=== PATIENT | female | born 1940 | race Caucasian/White ===

== ENCOUNTER 2018-03-29 09:50 | Day surgery (SDC) | payer MEDICARE, OTHER ==
[2018-03-28 09:55] VITALS: BMI 29.9
[2018-03-29] MEDS ORDERED: Propofol 1,000 MG/100 ML VIAL IV ONE (11:58)
[2018-03-29] MEDS ORDERED: Ketamine 50 MG/ML VIAL ONE (11:58)
[2018-03-29] MEDS ORDERED: Midazolam HCl 2 mg/2 ml Vial ONE (11:59)
--- NOTE | 2018-03-29 12:55 | RAD ---
SIX VIEWS CERVICAL SPINE: Date: 03-29-18 History: Chronic pain. FINDINGS: The neutral lateral examination demonstrates no anterolisthesis or retrolisthesis. There is multileve l disc space narrowing and mild anterior osteophyte formation, most prominent at C3-4 and C5-6. Front al imaging demonstrates multilevel mid cervical spine bilateral facet and uncal vertebral osteophyte formation. Fuchs view and open mouth odontoid view appear grossly unremarkable. Flexion imaging and e xtension imaging demonstrates no significant anterolisthesis or retrolisthesis. No prevertebral soft tissue swelling. IMPRESSION: Cervical spine degenerative change as described above. POS: [facility]
--- NOTE | 2018-03-29 13:09 | RAD ---
FIVE VIEWS LUMBAR SPINE INCLUDING FLEXION AND EXTENSION VIEWS. DATE: 03/29/18. HISTORY: Chronic low back pain. COMPARISON: None available. FINDINGS: There are 5 [id number] lumbar-type vertebral bodies. There is narrowing of the intervertebral d isk spaces at all levels with scattered osteophytes in the lumbar spine. There is grade I anterolist hesis of L4 on L5. The degree of listhesis measures approximately 9 mm on flexion and extension view s. No abnormal translational motion is present. Vertebral body heights are within normal limits and no fracture is seen. Facet degenerative changes are seen within the lower lumbar spine. Vascular calcifications in the abdominal aorta and iliac arteries. IMPRESSION: 1. Multilevel degenerative changes in the lumbar spine. 2. Grade I anterolisthesis of L4 on L5. POS: [facility]
[2018-03-29] MEDS ORDERED: Fentanyl 100 MCG/2 ML VIAL ONE (14:09)
--- NOTE | 2018-03-29 14:17 | MRI ---
MRI LUMBAR SPINE NONCONTRAST: History Low back pain. Right leg radiculopathy. FINDINGS: Images including retroperitoneum show cysts arising from the cortex of the right kidney. Gallbladder is likely distended. Vertebral body heights are maintained. There is desiccation of all of the int ervertebral disks. T12-L1, L1-2: Mild osteophytosis. Central canal and neural foramina are patent. L2-3: Disk space narrowing. Posterior disk bulge and circumferential degenerative changes result in mild stenosis of the central canal and mild to moderate stenosis of each neural foramen. L3-4: Posterior disk bulge and circumferential degenerative changes result in severe stenosis of the central canal. There is moderate right and severe left foraminal stenosis. A large right posterior disk herniation is also present with inferior extension compressing the origin of the left L4 nerve root. L4-5: Disk space narrowing. Minimal degenerative spondylolisthesis. Disk bulge and circumferential degenerative changes result in severe bilateral foraminal stenoses. L5-S1: Mild osteophytosis. Thecal sac is patent. Degenerative changes with moderate right and mild left foraminal stenoses. Please note that there is sacralization of the 5th lumbar segment. IMPRESSION: 1. Large disk herniation at the L3-4 level with inferior extension compressing the right L4 nerve ro ot. 2. Prominent multilevel degenerative changes including significant central canal and foraminal steno ses as detailed above. POS: [facility]
--- NOTE | 2018-03-29 14:36 | MRI ---
MRI CERVICAL SPINE WITHOUT CONTRAST: Date: 03/29/18 HISTORY: Cervical radiculopathy. COMPARISON: None. TECHNIQUE: Cervical spine MRI is performed without intravenous Gadolinium administration. Multisequential, multi planar imaging performed. FINDINGS: Appropriate T1 marrow signal intensity of the cervical vertebra. Cervical spine vertebral body height is maintained. No fracture. No significant STIR hyperintensity to suggest vertebral body edema or li gamentous injury. Visualized brain parenchyma, cervicomedullary junction, cervical cord, and the upper thoracic cord smyth ve a normal size and signal intensity. C2-C3: No significant disc osteophyte complex. No significant central canal stenosis. Foramina are patent. C3-C4: Broad based disc osteophyte complex. No significant central canal stenosis. Degenerative changes of b ilateral uncovertebral joints result in moderate bilateral foraminal narrowing. C4-C5: No significant disc osteophyte complex. No significant central canal stenosis. Moderate bilateral for aminal narrowing. C5-C6: Broad based disc osteophyte complex effaces the ventral subarachnoid space. Deformity of the ventral thecal sac and ventral cord. Moderate central canal stenosis. Degenerative changes of bilateral uncov ertebral joints results in mild right and moderate left foraminal narrowing. C6-C7: There is a broad based disc osteophyte complex with mild stenosis of the thecal sac. Ventral subarach noid space is maintained. Mild central canal stenosis. Degenerative changes result in moderate bilate ral foraminal narrowing. C7-T1: No significant disc osteophyte complex. No significant central canal stenosis. Foramina are patent. In the left neural foramen, at T2-T3, there is a T2 hyperintense, T1 hypointense lesion that is likel y a Tarlov cyst. There is expansion and widening/remodeling of the foramen. 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 IMPRESSION: Degenerative changes of the cervical spine as detailed above. POS: [facility]
[2018-03-29] MEDS ORDERED: fentaNYL 50 mcg/hour Patch TD SCH (15:30)
== END 2018-03-29 15:53 | disposition home or self-care (01) ==
LOC: SDC/OP 09:50 → EDSTATUS 12:00 → SDC/OP 15:53
PROVIDERS: ATTEND Physician Assistant Surgical
DX: M48.02 Spinal stenosis, cervical region (principal); M47.22 Other spondylosis with radiculopathy, cervical region; M43.16 Spondylolisthesis, lumbar region; M47.26 Other spondylosis with radiculopathy, lumbar region; M51.16 Intervertebral disc disorders with radiculopathy, lumbar region; Z79.899 Other long term (current) drug therapy; Z88.5 Allergy status to narcotic agent; Z88.0 Allergy status to penicillin; Z79.84 Long term (current) use of oral hypoglycemic drugs
CPT/HCPCS: 72050; 72110; 72141; 72148; 96374; J2250; J2704; J3010

== ENCOUNTER 2018-06-07 12:47 | Outpatient (CLI) | payer MEDICARE, OTHER ==
[2018-06-07 15:23] LABS: #Basophils 0.1 thou/uL (0.0-0.2); #Eosinphils 0.2 thou/uL (0.0-0.7); #Lymphocytes 2.1 thou/uL (1.20-3.40); #Monocytes 0.5 thou/uL (0.11-0.59); #Neutrophils 6.5 thou/uL (1.40-6.50); %Eosinophils 2.5 % (0.0-10.0); %Lymphocytes 22.1 % (21.0-51.0); %Monocytes 5.6 % (0.0-10.0); %Neutrophils 68.9 % (42.0-75.0); Hemoglobin 13.4 g/dL (12.0-16.0); Mean Corpuscular HGB CONC 32.3 g/dL (32.0-36.0); Mean Corpuscular Hemoglobin 26.8 pg (27.0-31.0); Mean Platelet Volume 9.5 fL (7.4-10.4); Platelet Count 200 thou/uL (130-400); RBC Distribution Width 14.8 % (11.5-14.5); Red Blood Cell (RBC) Count 4.99 mill/uL (4.20-5.40); White Blood Cell (WBC) Count 9.4 thou/uL (4.8-10.8)
[2018-06-07 15:24] LABS: PTT 26.7 SEC (22.9-36.1); Prothrombin Time 12.8 SEC (12.0-14.7)
[2018-06-07 15:38] LABS: Anion Gap 16 mmol/L (10-20); BUN (Urea Nitrogen) 12 mg/dL (9.8-20.1); Calc. Creatinine Clearance 0 mL/min (70-130); Calcium 9.6 mg/dL (7.8-10.44); Carbon Dioxide 23 mmol/L (23-31); Chloride 106 mmol/L (98-107); Estimated GFR-MDRD 71; Glucose 184 mg/dL (83-110); Potassium 4.1 mmol/L (3.5-5.1); Sodium 141 mmol/L (136-145)
== END 2018-06-07 12:48 | disposition home or self-care (01) ==
LOC: LABBT 12:47
PROVIDERS: ATTEND Surgery
DX: Z01.818 Encounter for other preprocedural examination (principal); M54.12 Radiculopathy, cervical region; M48.02 Spinal stenosis, cervical region
CPT/HCPCS: 80048; 85025; 85610; 85730; 93005; 93010

== ENCOUNTER 2018-07-27 14:01 | Outpatient (CLI) | payer MEDICARE, OTHER ==
--- NOTE | 2018-07-27 14:43 | RAD ---
CERVICAL SPINE SERIES THREE VIEWS 07/27/18 HISTORY: Followup of surgery. The vertebral bodies are normal in height. Anterior cervical fusion has been performed at C5-6. Marke rs of a disc implant are within the confines of the disc level. There is disc narrowing at C6-7. Dege nerative facet changes are noted. IMPRESSION: Postop changes of the spine. POS: [facility]
== END 2018-07-27 14:02 | disposition home or self-care (01) ==
LOC: TBSIIMAG 14:01
PROVIDERS: ATTEND Surgery
DX: M54.2 Cervicalgia (principal); Z98.890 Other specified postprocedural states
CPT/HCPCS: 72040

== ENCOUNTER 2018-11-28 05:52 | Inpatient (IN) | payer MEDICARE, OTHER ==
[2018-11-28] MEDS ORDERED: Dexamethasone 4 mg/ml Vial ONE (06:30)
[2018-11-28] MEDS ORDERED: Bupivacaine HCl 0.5%/Epinephrine 1:200,000/PF 30 ml Vial ONE (06:30)
[2018-11-28] MEDS ORDERED: Albumin 5% 500 ML ONE (06:31)
[2018-11-28] MEDS ORDERED: Clindamycin/D5W 900 mg/50 ml Premix Bag ONE (06:44)
[2018-11-28] MEDS ORDERED: Levofloxacin 500 mg/D5W 100 ml Premix Bag ONE (06:44)
[2018-11-28] MEDS ORDERED: Heparin 10,000 UNITS/1 ML VIAL 30,000 UNITS in Sodium Chloride 0.9% 1,000 ML FS SCH (06:45)
[2018-11-28] MEDS ORDERED: Fentanyl 250 MCG/5 ML VIAL ONE (06:50)
[2018-11-28] MEDS ORDERED: Midazolam HCl 5 mg/5 ml Vial ONE (06:51)
[2018-11-28] MEDS ORDERED: Norepinephrine 8 MG/0.9% NS 250 ML ONE (06:51)
[2018-11-28] MEDS ORDERED: Vecuronium 10 MG VIAL ONE ×2 (06:51→15:10)
[2018-11-28] MEDS ORDERED: Dexmedetomidine 200 MCG/2 ML VIAL ONE (06:51)
[2018-11-28 07:00] LABS: #Basophils 0.1 thou/uL (0.0-0.2); #Eosinphils 0.3 thou/uL (0.0-0.7); #Lymphocytes 2.2 thou/uL (1.20-3.40); #Monocytes 0.8 thou/uL (0.11-0.59); #Neutrophils 4.9 thou/uL (1.40-6.50); %Basophils 1.3 % (0.0-1.0); %Eosinophils 3.4 % (0.0-10.0); %Lymphocytes 26.8 % (21.0-51.0); %Monocytes 9.7 % (0.0-10.0); %Neutrophils 58.9 % (42.0-75.0); Hemoglobin 11.7 g/dL (12.0-16.0); Mean Corpuscular Volume 80.6 fL (78.0-98.0); Mean Platelet Volume 9.7 fL (7.4-10.4); Platelet Count 173 thou/uL (130-400); RBC Distribution Width 15.4 % (11.5-14.5); White Blood Cell (WBC) Count 8.3 thou/uL (4.8-10.8)
[2018-11-28 07:06] LABS: PTT 27.1 SEC (22.9-36.1); Prothrombin Time 13.2 SEC (12.0-14.7)
[2018-11-28] MEDS ORDERED: Midazolam HCl 2 mg/2 ml Vial ONE (07:09)
[2018-11-28 07:18] LABS: Anion Gap 17 mmol/L (10-20); BUN (Urea Nitrogen) 11 mg/dL (9.8-20.1); Calc. Creatinine Clearance 92 mL/min (70-130); Calcium 9.4 mg/dL (7.8-10.44); Carbon Dioxide 23 mmol/L (23-31); Chloride 109 mmol/L (98-107); Estimated GFR-MDRD 84; Glucose 181 mg/dL (83-110); Potassium 3.9 mmol/L (3.5-5.1); Sodium 145 mmol/L (136-145)
[2018-11-28] MEDS ORDERED: Insulin Regular 300 UNITS/3 ML VIAL ONE (08:31)
[2018-11-28] MEDS ORDERED: Ondansetron PF 4 MG/2 ML Vial IVP PRN (12:09)
[2018-11-28] MEDS ORDERED: HYDROcodone/Acetaminophen 5/325 mg Tablet PO PRN (12:09)
[2018-11-28] MEDS ORDERED: Acetaminophen 325 MG TAB PO PRN (12:09)
[2018-11-28] MEDS ORDERED: Nitroglycerin 50 MG/250 ML BOT 250 ML IVPB PRN (12:09)
[2018-11-28] MEDS ORDERED: Magnesium 2 GM/NS 0.9% 100 ML 2 GM in Premix Bag 1 BAG IVPB SCH (12:09)
[2018-11-28] MEDS ORDERED: Norepinephrine 8 MG/0.9% NS 250 ML IVPB PRN (12:09)
[2018-11-28] MEDS ORDERED: Guaifenesin DM 100-10/5 ML UDCUP PO PRN (12:09)
[2018-11-28] MEDS ORDERED: Bisacodyl 10 MG SUPP PR PRN (12:09)
[2018-11-28] MEDS ORDERED: Promethazine HCl 25 MG/ML VIAL IM PRN (12:09)
[2018-11-28] MEDS ORDERED: Fentanyl 100 MCG/2 ML VIAL SLOW IVP PRN (12:09)
[2018-11-28] MEDS ORDERED: Bisacodyl 5 MG TAB PO PRN (12:09)
[2018-11-28] MEDS ORDERED: Post-Op Insulin Drip Protocol IVPB ONE (12:09)
[2018-11-28] MEDS ORDERED: Hetastarch 6% 500 ML 500 ML IVPB PRN (12:09)
[2018-11-28] MEDS ORDERED: Mag-Al 1200 mg/1200 mg/30 ML UDCUP PO PRN (12:09)
[2018-11-28 12:28] LABS: Actual Bicarbonate (HCO3a) 23.4 mEq/L (22-28); CO2 Tension 42.5 mmHg (35.0-45.0); Calcium, Ionized 1.13 mmol/L (1.12-1.30); Carboxyhemoglobin (COHb) 1.2 gm% (0.0-3.0); Hemoglobin (Hb) 9.3 g/dL (12.0-16.0); pH, Arterial 7.36 (7.35-7.45)
[2018-11-28 12:29] LABS: ALV-art Gradient 548.875 (0-20); Puncture Site ALINE
[2018-11-28] MEDS ORDERED: Nitroglycerin 50 MG/250 ML BOT 250 ML ONE (12:33)
[2018-11-28 12:37] LABS: INR-International Normal Ratio 1.3; PTT 33.3 SEC (22.9-36.1); Prothrombin Time 16.7 SEC (12.0-14.7)
[2018-11-28] MEDS: D5 1/2 NS w/20 mEq KCL 1,000 ML IV SCH (12:39)
[2018-11-28 12:43] LABS: #Eosinphils 0.1 thou/uL (0.0-0.7); #Monocytes 1.1 thou/uL (0.11-0.59); #Neutrophils 9.7 thou/uL (1.40-6.50); %Basophils 0.2 % (0.0-1.0); %Eosinophils 0.8 % (0.0-10.0); %Lymphocytes 15.2 % (21.0-51.0); %Monocytes 8.5 % (0.0-10.0); %Neutrophils 75.3 % (42.0-75.0); Hemoglobin 8.9 g/dL (12.0-16.0); Mean Corpuscular HGB CONC 31.2 g/dL (32.0-36.0); Mean Corpuscular Hemoglobin 25.5 pg (27.0-31.0); Mean Corpuscular Volume 81.7 fL (78.0-98.0); Mean Platelet Volume 9.8 fL (7.4-10.4); Platelet Count 110 thou/uL (130-400); RBC Distribution Width 15.2 % (11.5-14.5); Red Blood Cell (RBC) Count 3.48 mill/uL (4.20-5.40); White Blood Cell (WBC) Count 12.9 thou/uL (4.8-10.8)
[2018-11-28] MEDS ORDERED: Dextrose 50% Abboject 50 ML SYRINGE SLOW IVP PRN (12:44)
[2018-11-28] MEDS ORDERED: HUMULIN R 100 UNITS in Sodium Chloride 0.9% 100 ML IVPB SCH (12:44)
[2018-11-28] MEDS ORDERED: Dextrose 5% in Water 1,000 ML IV PRN (12:44)
[2018-11-28] MEDS ORDERED: Magnesium 2 GM/50 ML 2 GM in Premix Bag 1 BAG IVPB SCH (12:45)
[2018-11-28 12:54] LABS: Anion Gap 14 mmol/L (10-20); BUN (Urea Nitrogen) 8 mg/dL (9.8-20.1); Calc. Creatinine Clearance 112 mL/min (70-130); Calcium 7.8 mg/dL (7.8-10.44); Carbon Dioxide 20 mmol/L (23-31); Chloride 115 mmol/L (98-107); Estimated GFR-MDRD Greater than 90; Glucose 107 mg/dL (83-110); Potassium 3.6 mmol/L (3.5-5.1); Sodium 145 mmol/L (136-145)
--- NOTE | 2018-11-28 12:54 | RAD ---
CHEST 1 VIEW: HISTORY: Open heart surgery: COMPARISON: Radiograph 11/09/2018. FINDINGS: The patient was intubated with endotracheal tube tip just above the level of the clavicles. The cent ral venous catheter is in place with the tip projecting over the right atrium. Moderate left effusion. There is volume loss in both lungs with atelectatic changes. No significant pneumothorax. Mediastinal drains are present. IMPRESSION: Expected postoperative findings. POS: [facility]
[2018-11-28] MEDS: Ketorolac Tromethamine 30 MG/ML VIAL IVP SCH ×3 (13:01→23:51)
[2018-11-28] MEDS: Fentanyl 100 MCG/2 ML VIAL SLOW IVP PRN ×3 (13:01→22:40)
[2018-11-28] MEDS: Potassium Chloride 20 MEQ/100 ML PREMIX BAG IVPB PRN (13:35)
[2018-11-28] MEDS ORDERED: Mannitol 12.5 GM/50 ML ONE (15:10)
[2018-11-28] MEDS ORDERED: Potassium Chloride 60 MEQ/30 ML VIAL ONE (15:10)
[2018-11-28] MEDS ORDERED: Magnesium 5 GM/10 ML VIAL ONE (15:10)
[2018-11-28] MEDS ORDERED: Heparin 30,000 units/30 ml VIAL ONE (15:10)
[2018-11-28] MEDS ORDERED: Ondansetron PF 4 MG/2 ML Vial ONE (15:10)
[2018-11-28] MEDS ORDERED: Lidocaine 2% PF 100 mg/5 ml Syringe ONE (15:10)
[2018-11-28] MEDS ORDERED: Heparin 5,000 UNITS/ML VIAL ONE (15:10)
[2018-11-28] MEDS ORDERED: Cardioplegic Soln 1,000 ML BAG ONE (15:10)
[2018-11-28] MEDS ORDERED: Aminocaproic Acid 5 GM/20 ML VIAL ONE (15:10)
[2018-11-28] MEDS ORDERED: Sodium Bicarb 50 MEQ/50 ML VIAL ONE (15:10)
[2018-11-28] MEDS ORDERED: PROPOFOL 200 MG/20 ML VIAL ONE (15:10)
[2018-11-28] MEDS ORDERED: Glycopyrrolate 0.2 MG/ML 5 ML SYRINGE ONE (15:10)
[2018-11-28] MEDS ORDERED: Papaverine 60 MG/2 ML VIAL ONE (15:10)
[2018-11-28] MEDS ORDERED: Thrombin 5000 UNITS/5 ML VIAL ONE (15:10)
[2018-11-28] MEDS ORDERED: Calcium Chloride 1 GM/10 ML Abboject SYRINGE ONE (15:10)
[2018-11-28 15:27] LABS: Actual Bicarbonate (HCO3a) 20.6 mEq/L (22-28); Calcium, Ionized 1.19 mmol/L (1.12-1.30); Carboxyhemoglobin (COHb) 0.8 gm% (0.0-3.0); Hemoglobin (Hb) 10.3 g/dL (12.0-16.0); O2 Tension (PaO2) 69.7 mmHg (> 70.0); Potassium - ABG Lab 4.14 mmol/L (3.70-5.30); pH, Arterial 7.38 (7.35-7.45)
[2018-11-28 15:28] LABS: Puncture Site ALINE
[2018-11-28] MEDS: Clindamycin/D5W 900 MG in Premix Bag 1 BAG IVPB SCH ×2 (16:44→23:52)
--- NOTE | 2018-11-28 17:13 | PDOC.CTH ---
Cardiology Progress Note - Subjective Pt. back from OR. s/p CABG. Extubated. A/O x 3. complaining of back,chest and leg pain. - Objective Vital Signs Pulse Resp BP Pulse Ox 11/28/18 15:33 77 21 H 96 11/28/18 12:10 61 115/43 L Weight 183 lb - Physical Examination General/Neuro: alert & oriented x3 Neck: no JVD present Lungs: CTA Heart: RRR Abdomen: NT/ND, soft - Labs Result Diagrams: 11/28/18 12:14 11/28/18 12:14 - Assessment/Plan CAD. s/p CABG.HURT-> LAD, SVG-> OM, SVG-> PDA. HTN: controlled well at this time. DM II; controlled. Continue present meds per CV surgery. Chronic back pain: consider surgery in the next couple months. RBBB: new since surgery. May resolve. HR 62. Resume betablockers when HR stable.
--- NOTE | 2018-11-28 17:29 | OP ---
DATE OF PROCEDURE: 11/28/2018 PREOPERATIVE DIAGNOSES: Coronary artery disease/hypertension/hyperlipidemia. POSTOPERATIVE DIAGNOSES: Coronary artery disease/hypertension/hyperlipidemia. PROCEDURES PERFORMED: Coronary artery bypass grafting x3; 1. Left internal mammary artery with 1.0 mm mid left anterior descending-good conduit, small target. 2. Reverse saphenous vein 0.8 mm OM-good conduit, small target. 3. Reverse saphenous vein to 1.0 mm PDA-good conduit, small target. CO-SURGEON: Dr. Gricelda Ribera. ANESTHESIA: General endotracheal - Dr. Gus Ryder. PUMP TIME: 61 minutes. CROSS-CLAMP TIME: 34 minutes. LOW CORE TEMPERATURE: 34 degrees Celsius. STUMPER FELLER: Kenna Clarke. DRAINS: 24-Wallisian chest tube x2. DRIPS: None. TRANSFUSIONS: None. DESCRIPTION OF PROCEDURE: After consent was obtained, the patient was brought to the operating room, placed supine position on the operating room table. Appropriate lines and monitors were placed and general endotracheal anesthesia was induced. Chest and legs were prepped and draped in usual sterile fashion. Greater saphenous vein was harvested from the left thigh utilizing an endoscopic technique. This vein was inadequate to use for bypass and was discarded. The left wound was then closed in layers and Dermabond applied to skin. Right greater saphenous vein was harvested through skip incisions from the thigh. This vein was a good vein for bypass. Wound was irrigated and closed in layers. Median sternotomy was performed. Left internal mammary artery was harvested as a pedicle graft. The patient was systemically heparinized. Distal pedicle was divided and infused with papaverine. Thymic fat and pericardium were divided with electrocautery. Pericardial stay sutures were placed. Aortic and atrial cannulation were performed. After adequate heparinization, retrograde priming was performed. The patient was placed on cardiopulmonary bypass. Distal targets were marked. Aortic cross-clamp was applied and an antegrade sanguineous cardioplegic arrest was obtained. 1 L of antegrade cold cardioplegia was given. Topical cold solution was used. Reverse saphenous vein was anastomosed to the PDA in an end-to-side fashion with running 7-0 Prolene suture. Anastomosis was tested and it was hemostatic. Reverse saphenous vein was anastomosed to the OM in an end-to-side fashion with running 7-0 Prolene suture. Anastomosis was tested and was hemostatic. The mammary was brought through window and the pericardium anastomosed to LAD in an end-to-side fashion with running 7-0 Prolene suture. On release, mammary claims good occluding anastomosis and good distal flow. Pedicle was secured with interrupted 6-0 Prolene suture. Cross-clamp was removed, and partial occluding clamp placed. Saphenous veins were anastomosed to the punch sites on the aorta with running 6-0 Prolene suture. Partial occluding clamp was removed and graft was deaired. Anastomoses were inspected for hemostasis, which was good. The patient was warmed and weaned from cardiopulmonary bypass. After resumption of sinus rhythm, good hemodynamics, temperature greater than 36.5, bypass was discontinued. Transfusions were given. Protamine was administered. Decannulation performed, and a pursestring suture secured. 24-Wallisian chest tubes were placed in the mediastinum. Vancomycin paste was used on the sternal edges. After adequate hemostasis had been obtained, sternum was treated with platelet rich plasma and closed with #7 wire. The wires were twisted, buried. Intercostal block was performed with 0.5% Marcaine mixed with Decadron. The wounds were then copiously irrigated with platelet poor plasma and closed in multiple layers. Needle, sponge, and instrument counts were all reported as correct at the end of the procedure. The patient was transferred to the intensive care unit in stable but critical condition. Job ID: [id number]
[2018-11-28 18:02] LABS: Potassium 4.4 mmol/L (3.5-5.1)
[2018-11-28] MEDS: HYDROcodone/Acetaminophen 5/325 mg Tablet PO PRN (19:12)
[2018-11-28 20:09] VITALS: BMI 33.5
[2018-11-28] MEDS: fentaNYL 50 mcg/hour Patch TD SCH (20:12)
[2018-11-28] MEDS: Pregabalin 50 MG CAP PO SCH (20:22)
[2018-11-28] MEDS: rOPINIRole HCl 0.5 MG TAB PO SCH (20:22)
[2018-11-28] MEDS: Famotidine/PF 20 mg/2ml Vial SLOW IVP SCH (20:26)
[2018-11-29] MEDS: HYDROcodone/Acetaminophen 5/325 mg Tablet PO PRN (04:37)
[2018-11-29 05:09] LABS: #Lymphocytes 1.5 thou/uL (1.20-3.40); #Monocytes 1.1 thou/uL (0.11-0.59); #Neutrophils 8.3 thou/uL (1.40-6.50); %Basophils 0.4 % (0.0-1.0); %Eosinophils 0.1 % (0.0-10.0); %Lymphocytes 13.3 % (21.0-51.0); %Monocytes 10.3 % (0.0-10.0); Hemoglobin 8.6 g/dL (12.0-16.0); Mean Corpuscular HGB CONC 31.1 g/dL (32.0-36.0); Mean Corpuscular Hemoglobin 25.5 pg (27.0-31.0); Mean Corpuscular Volume 82.1 fL (78.0-98.0); Mean Platelet Volume 9.8 fL (7.4-10.4); Platelet Count 124 thou/uL (130-400); RBC Distribution Width 15.4 % (11.5-14.5); Red Blood Cell (RBC) Count 3.39 mill/uL (4.20-5.40); White Blood Cell (WBC) Count 10.9 thou/uL (4.8-10.8)
[2018-11-29 05:23] LABS: Anion Gap 10 mmol/L (10-20); BUN (Urea Nitrogen) 11 mg/dL (9.8-20.1); Calc. Creatinine Clearance 101 mL/min (70-130); Calcium 8.3 mg/dL (7.8-10.44); Carbon Dioxide 24 mmol/L (23-31); Chloride 113 mmol/L (98-107); Estimated GFR-MDRD 90; Glucose 107 mg/dL (83-110); Potassium 4.2 mmol/L (3.5-5.1); Sodium 143 mmol/L (136-145)
[2018-11-29] MEDS: Ketorolac Tromethamine 30 MG/ML VIAL IVP SCH ×3 (05:28→17:36)
[2018-11-29] MEDS: oxyCODONE 5 MG TAB PO SCH ×4 (06:49→22:50)
[2018-11-29] MEDS ORDERED: Levofloxacin 500 mg/D5W 750 MG in Premix Bag 1 BAG IVPB SCH (07:00)
--- NOTE | 2018-11-29 08:13 | RAD ---
AP CHEST: History: Post open heart surgery. Date: 11-29-18 Comparison: 11-28-18 FINDINGS: AP chest demonstrates interval extubation of the patient. A right subclavian central line is in place , distal tip overlying the right atrium. Two left sided chest tubes are in place. Left sided pleural effusion is seen. Pulmonary vascular congestion is seen. IMPRESSION: 1. Interval extubation of the patient. 2. Persistent left sided pleural effusion. POS: [facility]
[2018-11-29] MEDS ORDERED: Magnesium 2 GM/50 ML 2 GM in Premix Bag 1 BAG IVPB SCH ×2 (09:00→10:15)
[2018-11-29] MEDS ORDERED: Magnesium 2 GM/NS 0.9% 100 ML 2 GM in Premix Bag 1 BAG IVPB SCH (09:00)
[2018-11-29] MEDS: Clindamycin/D5W 900 MG in Premix Bag 1 BAG IVPB SCH ×2 (09:25→16:07)
[2018-11-29] MEDS: Famotidine/PF 20 mg/2ml Vial SLOW IVP SCH (09:25)
[2018-11-29] MEDS: Pregabalin 50 MG CAP PO SCH ×4 (09:26→21:43)
[2018-11-29] MEDS: Aspirin 325 MG TAB PO SCH ×2 (09:29→09:34)
[2018-11-29] MEDS: D5 1/2 NS w/20 mEq KCL 1,000 ML IV SCH (11:14)
[2018-11-29] MEDS: Insulin Regular 300 UNITS/3 ML VIAL SC PRN ×3 (11:27→21:45)
--- NOTE | 2018-11-29 12:24 | PDOC.CTH ---
Cardiology Progress Note - Subjective The pt seen and examined. No overnight events. No cardiac complaints. She complains of chronic back pain. - Objective Weight 190 lb 7.67 oz 11/28/18 11/29/18 11/30/18 06:59 06:59 06:59 Intake Total 1135.4 Output Total 2035 Balance -899.6 - Physical Examination General/Neuro: alert & oriented x3 Neck: no JVD present Lungs: other: (diminished at bases) Heart: RRR Abdomen: soft Extremities: other: (generalized edema) - Telemetry Telemetry Rhythm: SR 60s - Labs Result Diagrams: 11/29/18 04:40 11/29/18 04:40 - Assessment/Plan 1. CAD with s/p CABG with HURT-> LAD, SVG-> OM, SVG-> PDA on 11/28/2018 - stable ; On ASA 325mg qd. Will start Bystlic 2.5mg qd today. Will start Lipitor 20mg qd from tonight. 2. HTN - controlled well at this time. 3. DM II - controlled. Continue present meds per CV surgery. 4. Chronic back pain: consider surgery in the next couple months. 5. RBBB - new since surgery. May resolve. will resum Bystolic with dose of 2.5mg qd from today. MAR reviewed Pt. seen and eval. by me. I agree with the A/O\P by the PASTE MIXER LIQUID. She is doing well from a cardiac standpoint. Chest clear anteriorly. RRR. Continue present treatments. Review of Systems - Review of Systems Constitutional: reports: no symptoms reported EENTM: reports: no symptoms reported Respiratory: reports: no symptoms reported Cardiac (ROS): reports: no symptoms reported ABD/GI: reports: no symptoms reported : reports: no symptoms reported Musculoskeletal: reports: see HPI
[2018-11-29] MEDS: Atorvastatin Calcium 20 MG TAB PO SCH (21:41)
[2018-11-29] MEDS: Famotidine 20 MG TAB PO SCH (21:42)
[2018-11-29] MEDS: rOPINIRole HCl 0.5 MG TAB PO SCH (21:43)
[2018-11-30] MEDS: Ketorolac Tromethamine 30 MG/ML VIAL IVP SCH ×4 (00:03→17:24)
[2018-11-30] MEDS: Insulin Regular 300 UNITS/3 ML VIAL SC PRN ×4 (00:07→21:28)
[2018-11-30] MEDS: Pregabalin 50 MG CAP PO SCH ×4 (00:15→21:27)
[2018-11-30 05:08] LABS: #Basophils 0.1 thou/uL (0.0-0.2); #Eosinphils 0.1 thou/uL (0.0-0.7); #Lymphocytes 2.7 thou/uL (1.20-3.40); #Monocytes 0.9 thou/uL (0.11-0.59); #Neutrophils 4.7 thou/uL (1.40-6.50); %Basophils 0.6 % (0.0-1.0); %Eosinophils 1.8 % (0.0-10.0); %Lymphocytes 32.1 % (21.0-51.0); %Monocytes 10.7 % (0.0-10.0); %Neutrophils 54.9 % (42.0-75.0); Hemoglobin 7.9 g/dL (12.0-16.0); Mean Corpuscular HGB CONC 30.9 g/dL (32.0-36.0); Mean Corpuscular Hemoglobin 25.5 pg (27.0-31.0); Mean Corpuscular Volume 82.4 fL (78.0-98.0); Mean Platelet Volume 9.9 fL (7.4-10.4); Platelet Count 119 thou/uL (130-400); RBC Distribution Width 15.5 % (11.5-14.5); Red Blood Cell (RBC) Count 3.11 mill/uL (4.20-5.40); White Blood Cell (WBC) Count 8.5 thou/uL (4.8-10.8)
[2018-11-30 05:23] LABS: Anion Gap 10 mmol/L (10-20); BUN (Urea Nitrogen) 17 mg/dL (9.8-20.1); Calc. Creatinine Clearance 97 mL/min (70-130); Calcium 8.2 mg/dL (7.8-10.44); Carbon Dioxide 24 mmol/L (23-31); Cardiac Risk 5.1 (Less than 4.5); Chloride 110 mmol/L (98-107); Cholesterol 122 mg/dl (< 200 Desired); Estimated GFR-MDRD 86; Glucose 101 mg/dL (83-110); HDL Cholesterol 24 mg/dL (>60 Neg Risk); LDL Cholesterol, Calculated 70 mg/dL; Sodium 140 mmol/L (136-145); Triglycerides 138 mg/dL (Less than 150)
[2018-11-30] MEDS: oxyCODONE 5 MG TAB PO SCH ×3 (05:57→21:28)
[2018-11-30] MEDS: Potassium Chloride 20 MEQ/100 ML PREMIX BAG IVPB PRN (05:59)
[2018-11-30] MEDS ORDERED: Mag-Al 1200 mg/1200 mg/30 ML UDCUP PO PRN (07:40)
[2018-11-30] MEDS ORDERED: Guaifenesin DM 100-10/5 ML UDCUP PO PRN (07:40)
[2018-11-30] MEDS ORDERED: Mineral Oil ENEMA PR PRN (07:40)
[2018-11-30] MEDS ORDERED: Bisacodyl 10 MG SUPP PR PRN (07:40)
[2018-11-30] MEDS ORDERED: Zolpidem Tartrate 5 MG TAB PO PRN (07:40)
[2018-11-30] MEDS ORDERED: Nitroglycerin 0.4 MG TAB (25 Tab Bottle) SL PRN (07:40)
[2018-11-30] MEDS ORDERED: Artificial Tears 18 DROP/0.9 ML EA EYE PRN (07:40)
[2018-11-30] MEDS ORDERED: diphenhydrAMINE 25 MG CAP PO PRN (07:40)
[2018-11-30] MEDS ORDERED: Furosemide 40 MG/4 ML VIAL SLOW IVP SCH (08:00)
[2018-11-30] MEDS ORDERED: HUMULIN R 100 UNITS in Sodium Chloride 0.9% 100 ML IVPB SCH (08:07)
[2018-11-30] MEDS ORDERED: Dextrose 50% Abboject 50 ML SYRINGE SLOW IVP PRN (08:07)
[2018-11-30] MEDS ORDERED: Dextrose 5% in Water 1,000 ML IV PRN (08:07)
[2018-11-30] MEDS: Potassium Chloride 10 MEQ TAB PO SCH (08:21)
[2018-11-30] MEDS: Famotidine 20 MG TAB PO SCH ×2 (08:23→21:27)
--- NOTE | 2018-11-30 09:16 | RAD ---
AP VIEW CHEST: Date: 11/30/18 HISTORY: Open heart surgery. FINDINGS: Comparison made to previous exam from 11/29/18. AP view of chest demonstrates rotation of the chest radiograph. Sternotomy wires seen. A right subclavian central line is seen, distal tip overlying the right atrium. Again, left-sided pleural effusion is seen. Mediastinal drains have been removed. No evidence of pneumothorax seen. IMPRESSION: 1. Removal of mediastinal drains. 2. Cardiomegaly and left-sided pleural effusion. POS: [facility]
[2018-11-30 09:24] LABS: Actual Bicarbonate (HCO3a) 23.1 mEq/L (22-28); Analyzer IN Cardio OR; Base Excess (BEa) -1.4 mEq/L (-2.0 to +3.0); CO2 Tension 37.9 mmHg (35.0-45.0); Carboxyhemoglobin (COHb) 0.7 gm% (0.0-3.0); Hemoglobin (Hb) 10.4 g/dL (12.0-16.0); O2 Tension (PaO2) 203.8 mmHg (> 70.0)
[2018-11-30 09:24] LABS: Actual Bicarbonate (HCO3a) 21.2 mEq/L (22-28); Analyzer IN Cardio OR; CO2 Tension 39.3 mmHg (35.0-45.0); Calcium, Ionized 1.09 mmol/L (1.12-1.30); Carboxyhemoglobin (COHb) 0.6 gm% (0.0-3.0); Hemoglobin (Hb) 9.3 g/dL (12.0-16.0); O2 Tension (PaO2) 124.3 mmHg (> 70.0); Potassium - ABG Lab 3.36 mmol/L (3.70-5.30); pH, Arterial 7.35 (7.35-7.45)
[2018-11-30 09:25] LABS: Actual Bicarbonate (HCO3v) 27 mEq/L (22-28); Analyzer IN Cardio OR; Base Excess 0.7 mEq/L (-2.0 to +3.0); Calcium, Ionized 1.05 mmol/L (1.16-1.32); Chloride (ABG LAB) 114 mmol/L (98-106); Hemoglobin (Hb) 8.6 g/dL (11.7-16.1); Potassium - ABG Lab 3.22 mmol/L (3.70-5.30); Sodium 140.7 mmol/L (133-146); pH (venous) 7.35 (7.32-7.43)
[2018-11-30 09:25] LABS: Actual Bicarbonate (HCO3a) 24.9 mEq/L (22-28); Analyzer IN Cardio OR; Base Excess (BEa) -0.3 mEq/L (-2.0 to +3.0); CO2 Tension 43.3 mmHg (35.0-45.0); Calcium, Ionized 1.04 mmol/L (1.12-1.30); Carboxyhemoglobin (COHb) 0.4 gm% (0.0-3.0); Hemoglobin (Hb) 8.5 g/dL (12.0-16.0); O2 Tension (PaO2) 432.1 mmHg (> 70.0); Potassium - ABG Lab 3.24 mmol/L (3.70-5.30); pH, Arterial 7.38 (7.35-7.45)
[2018-11-30 09:26] LABS: Actual Bicarbonate (HCO3a) 24.6 mEq/L (22-28); Analyzer IN Cardio OR; Base Excess (BEa) -0.8 mEq/L (-2.0 to +3.0); Calcium, Ionized 1.25 mmol/L (1.12-1.30); Carboxyhemoglobin (COHb) 0.7 gm% (0.0-3.0); Hemoglobin (Hb) 7.4 g/dL (12.0-16.0); O2 Tension (PaO2) 421.1 mmHg (> 70.0); Potassium - ABG Lab 3.68 mmol/L (3.70-5.30); pH, Arterial 7.37 (7.35-7.45)
[2018-11-30 09:27] LABS: Actual Bicarbonate (HCO3a) 22.1 mEq/L (22-28); Base Excess (BEa) -2.4 mEq/L (-2.0 to +3.0); CO2 Tension 36.7 mmHg (35.0-45.0); Carboxyhemoglobin (COHb) 0.5 gm% (0.0-3.0); O2 Tension (PaO2) 174.1 mmHg (> 70.0); Potassium - ABG Lab 3.49 mmol/L (3.70-5.30)
[2018-11-30 09:29] LABS: Puncture Site ALINE
[2018-11-30 09:41] LABS: Puncture Site ALINE
[2018-11-30 09:43] LABS: Puncture Site ALINE
[2018-11-30 09:44] LABS: Puncture Site ALINE
[2018-11-30 09:44] LABS: Puncture Site ALINE
[2018-11-30] MEDS: Aspirin 325 mg Enteric Coated Tablet PO SCH (09:44)
[2018-11-30] MEDS ORDERED: Bismuth Subs 17.5mg/mL Susp 120 ML BOT PO PRN (09:53)
[2018-11-30] MEDS ORDERED: Labetalol HCl 100 MG/20 ML VIAL ONE (11:19)
[2018-11-30] MEDS ORDERED: rOPINIRole HCl 0.5 MG TAB PO SCH (13:00)
--- NOTE | 2018-11-30 19:19 | PDOC.CTH ---
Cardiology Progress Note - Subjective The pt seen and examined. No overnight events. No cardiac complaints. She complains of chronic back pain. - Objective Vital Signs Temp Pulse Pulse Pulse BP BP Pulse Ox 11/30/18 16:00 98.2 F 11/30/18 13:56 71 74 126/55 L 145/81 H 11/30/18 12:00 98.4 F 11/30/18 11:37 77 11/30/18 08:00 98.6 F 98 Pulse Ox Pulse Ox 11/30/18 16:00 11/30/18 13:56 95 93 L 11/30/18 12:00 11/30/18 11:37 11/30/18 08:00 Weight 190 lb 7.67 oz 11/29/18 11/30/18 12/01/18 06:59 06:59 06:59 Intake Total 1135.4 968 960 Output Total 2035 953 770 Balance -899.6 15 190 - Physical Examination General/Neuro: alert & oriented x3 Neck: no JVD present Lungs: other: (diminished at bases) Heart: RRR Abdomen: soft Extremities: other: (no edema) - Telemetry Telemetry Rhythm: SR - Labs Result Diagrams: 11/30/18 04:50 11/30/18 04:50 - Assessment/Plan 1. CAD with s/p CABG with HURT-> LAD, SVG-> OM, SVG-> PDA on 11/28/2018 - stable ; On ASA 325mg qd and Bystlic 2.5mg qd, Lipitor 20mg qd. 2. HTN - controlled well at this time. 3. DM II - controlled. Continue present meds per CV surgery. 4. Chronic back pain: consider surgery in the next couple months. 5. RBBB - new since surgery. May resolve. on Bystolic with dose of 2.5mg qd. MAR reviewed Pt. seen and eval. by me. I agree with the A/P by the SHIRT TURNER. From a cardiac standpoint she is doing well s/p CABG. Pain from the back and legs is still a problem. Review of Systems - Review of Systems Constitutional: reports: no symptoms reported EENTM: reports: no symptoms reported Respiratory: reports: no symptoms reported Cardiac (ROS): reports: no symptoms reported ABD/GI: reports: no symptoms reported : reports: no symptoms reported Musculoskeletal: reports: no symptoms reported
[2018-11-30] MEDS: Atorvastatin Calcium 20 MG TAB PO SCH (21:27)
[2018-11-30] MEDS: rOPINIRole HCl 0.5 MG TAB PO SCH (21:28)
[2018-12-01] MEDS: Ketorolac Tromethamine 30 MG/ML VIAL IVP SCH ×3 (00:41→12:16)
[2018-12-01 04:34] LABS: #Basophils 0.1 thou/uL (0.0-0.2); #Eosinphils 0.3 thou/uL (0.0-0.7); #Lymphocytes 2.4 thou/uL (1.20-3.40); #Monocytes 0.7 thou/uL (0.11-0.59); #Neutrophils 4.3 thou/uL (1.40-6.50); %Basophils 0.8 % (0.0-1.0); %Eosinophils 3.9 % (0.0-10.0); %Lymphocytes 30.8 % (21.0-51.0); %Monocytes 8.9 % (0.0-10.0); %Neutrophils 55.7 % (42.0-75.0); Mean Corpuscular HGB CONC 31.2 g/dL (32.0-36.0); Mean Corpuscular Hemoglobin 25.6 pg (27.0-31.0); Mean Corpuscular Volume 82.2 fL (78.0-98.0); Mean Platelet Volume 9.4 fL (7.4-10.4); Platelet Count 127 thou/uL (130-400); RBC Distribution Width 15.4 % (11.5-14.5); Red Blood Cell (RBC) Count 3.13 mill/uL (4.20-5.40); White Blood Cell (WBC) Count 7.7 thou/uL (4.8-10.8)
[2018-12-01 04:54] LABS: Anion Gap 11 mmol/L (10-20); BUN (Urea Nitrogen) 15 mg/dL (9.8-20.1); Calc. Creatinine Clearance 99 mL/min (70-130); Calcium 8.3 mg/dL (7.8-10.44); Carbon Dioxide 25 mmol/L (23-31); Chloride 108 mmol/L (98-107); Estimated GFR-MDRD 87; Glucose 129 mg/dL (83-110); Potassium 3.9 mmol/L (3.5-5.1); Sodium 140 mmol/L (136-145)
[2018-12-01] MEDS: oxyCODONE 5 MG TAB PO SCH ×3 (06:16→21:19)
[2018-12-01] MEDS: Potassium Chloride 20 MEQ/100 ML PREMIX BAG IVPB PRN (06:16)
[2018-12-01] MEDS: Insulin Regular 300 UNITS/3 ML VIAL SC PRN ×3 (06:25→21:26)
--- NOTE | 2018-12-01 08:43 | PDOC.CTH ---
Cardiology Progress Note - Subjective pt. seen and eval.by me. siting up in the chair. ate well. No cardiac complaints. Stable s/p CABG. - Objective Vital Signs Temp Pulse Ox 12/01/18 00:00 97.9 F 11/30/18 23:39 97 Weight 180 lb 5.41 oz 11/30/18 12/01/18 12/02/18 06:59 06:59 06:59 Intake Total 968 1200 Output Total 953 1500 Balance 15 -300 - Physical Examination General/Neuro: alert & oriented x3 Neck: no JVD present Lungs: CTA Heart: RRR Abdomen: no HSM, NT/ND - Telemetry Telemetry Rhythm: NSR - Labs Result Diagrams: 12/01/18 04:28 12/01/18 04:28 - Assessment/Plan 1. CAD with s/p CABG with HURT-> LAD, SVG-> OM, SVG-> PDA on 11/28/2018 - stable ; On ASA 325mg qd and Bystlic 2.5mg qd, Lipitor 20mg qd. 2. HTN - controlled at this time but on the high side. 3. DM II - controlled. Continue present meds per CV surgery. 4. Chronic back pain: consider surgery in the next couple months. 5. RBBB - new since surgery. May resolve. on Bystolic with dose of 2.5mg qd. IVETTE castano
[2018-12-01] MEDS ORDERED: Nebivolol HCl 2.5 MG TAB PO SCH (09:00)
[2018-12-01] MEDS ORDERED: Metoprolol Tartrate 25 MG TAB PO SCH (09:00)
[2018-12-01] MEDS: Pregabalin 50 MG CAP PO SCH ×3 (09:04→21:20)
[2018-12-01] MEDS: Potassium Chloride 10 MEQ TAB PO SCH (09:06)
[2018-12-01] MEDS: Nebivolol HCl 5 MG TAB PO SCH (09:06)
[2018-12-01] MEDS: Glimepiride 2 MG TAB PO SCH ×2 (09:07→17:03)
[2018-12-01] MEDS: Famotidine 20 MG TAB PO SCH ×2 (09:07→21:17)
[2018-12-01] MEDS: Aspirin 325 mg Enteric Coated Tablet PO SCH (09:08)
[2018-12-01] MEDS: Furosemide 40 MG TAB PO SCH (09:08)
[2018-12-01] MEDS: fentaNYL 50 mcg/hour Patch TD SCH (09:51)
[2018-12-01] MEDS: Bisacodyl 5 MG TAB PO PRN (10:09)
[2018-12-01] MEDS: hydrALAZINE 20 MG/ML VIAL SLOW IVP PRN (17:03)
[2018-12-01] MEDS ORDERED: Amlodipine 10 MG TAB PO SCH (20:00)
[2018-12-01] MEDS ORDERED: Alogliptin 25 MG TAB PO SCH (21:00)
[2018-12-01] MEDS ORDERED: Non-Formulary Item 1 EACH (Empagliflozin [Jardiance] 10 MG) PO SCH (21:00)
[2018-12-01] MEDS: Atorvastatin Calcium 20 MG TAB PO SCH (21:17)
[2018-12-01] MEDS: rOPINIRole HCl 0.5 MG TAB PO SCH (21:18)
--- NOTE | 2018-12-01 23:12 | EKG ---
Test Reason : POST CABG Blood Pressure : / mmHG Vent. Rate : 062 BPM Atrial Rate : 062 BPM P-R Int : 210 ms QRS Dur : 126 ms QT Int : 498 ms P-R-T Axes : 038 -48 029 degrees QTc Int : 505 ms Sinus rhythm with 1st degree A-V block Left axis deviation Right bundle branch block Inferior infarct , age undetermined Abnormal ECG When compared with ECG of 07-JUN-2018 14:35, Right bundle branch block is now Present Inferior infarct is now Present Confirmed by NAVEEN NAVA M.D. ([id number] on 12/01/2018 11:12:11 PM Referred By: Sherri VILLALPANDO Confirmed By:NAVEEN NAVA M.D.
[2018-12-02] MEDS: hydrALAZINE 20 MG/ML VIAL SLOW IVP PRN (01:32)
[2018-12-02 05:19] LABS: #Basophils 0.1 thou/uL (0.0-0.2); #Eosinphils 0.3 thou/uL (0.0-0.7); #Lymphocytes 2.2 thou/uL (1.20-3.40); #Neutrophils 8.4 thou/uL (1.40-6.50); %Basophils 0.5 % (0.0-1.0); %Eosinophils 2.7 % (0.0-10.0); %Lymphocytes 18.3 % (21.0-51.0); %Monocytes 8.7 % (0.0-10.0); %Neutrophils 69.8 % (42.0-75.0); Hemoglobin 9.4 g/dL (12.0-16.0); Mean Corpuscular HGB CONC 31.2 g/dL (32.0-36.0); Mean Corpuscular Hemoglobin 25.5 pg (27.0-31.0); Mean Corpuscular Volume 81.7 fL (78.0-98.0); Platelet Count 182 thou/uL (130-400); Red Blood Cell (RBC) Count 3.69 mill/uL (4.20-5.40)
[2018-12-02 05:39] LABS: Anion Gap 16 mmol/L (10-20); BUN (Urea Nitrogen) 12 mg/dL (9.8-20.1); Calc. Creatinine Clearance 98 mL/min (70-130); Calcium 8.8 mg/dL (7.8-10.44); Carbon Dioxide 20 mmol/L (23-31); Chloride 106 mmol/L (98-107); Estimated GFR-MDRD Greater than 90; Glucose 138 mg/dL (83-110); Potassium 3.9 mmol/L (3.5-5.1); Sodium 138 mmol/L (136-145)
[2018-12-02] MEDS: oxyCODONE 5 MG TAB PO SCH ×2 (05:52→13:34)
[2018-12-02] MEDS: Famotidine 20 MG TAB PO SCH (08:47)
[2018-12-02] MEDS: Pregabalin 50 MG CAP PO SCH ×2 (08:47→16:09)
[2018-12-02] MEDS: Nebivolol HCl 5 MG TAB PO SCH (08:47)
[2018-12-02] MEDS: Furosemide 40 MG TAB PO SCH (08:47)
[2018-12-02] MEDS: Aspirin 325 mg Enteric Coated Tablet PO SCH (08:47)
[2018-12-02] MEDS: Potassium Chloride 10 MEQ TAB PO SCH (08:47)
[2018-12-02] MEDS: Glimepiride 2 MG TAB PO SCH ×2 (08:47→16:12)
[2018-12-02] MEDS: Bisacodyl 5 MG TAB PO PRN (13:36)
--- NOTE | 2018-12-02 14:29 | PDOC.CTH ---
Cardiology Progress Note - Subjective The pt seen and examined. No overnight events. No cardiac complaints. She walked longer distance today with PT. - Objective Vital Signs Temp Pulse Pulse Pulse Resp BP BP 12/02/18 09:15 70 67 152/67 H 131/61 12/02/18 08:42 70 165/73 H 142/65 H 12/02/18 08:00 98.2 F 74 18 12/02/18 04:33 99.5 F 72 16 BP BP Pulse Ox 12/02/18 09:15 12/02/18 08:42 12/02/18 08:00 124/59 L 94 L 12/02/18 04:33 148/67 H 97 Weight 184 lb 8 oz 12/01/18 12/02/18 12/03/18 06:59 06:59 06:59 Intake Total 1200 1200 Output Total 1500 2470 Balance -300 -1270 - Physical Examination General/Neuro: alert & oriented x3 Neck: no JVD present Lungs: CTA Heart: RRR Abdomen: soft Extremities: other: (No edema) - Telemetry Telemetry Rhythm: SR - Labs Result Diagrams: 12/02/18 05:05 12/02/18 05:05 - Assessment/Plan 1. CAD with s/p CABG with HURT-> LAD, SVG-> OM, SVG-> PDA on 11/28/2018 - stable ; On ASA 325mg qd and Bystlic 2.5mg qd, Lipitor 20mg qd. 2. HTN - controlled well at this time. 3. DM II - controlled. Continue present meds per CV surgery. 4. Chronic back pain: consider surgery in the next couple months. 5. RBBB - new since surgery. May resolve. on Bystolic with dose of 2.5mg qd. MAR reviewed Pt. seen and eval. by me. I agree with the A/P by the TURBINE ATTENDANT. She is doing well post CABG. Ready for transfer to Rehab. Chest clear. RRR. Review of Systems - Review of Systems Constitutional: reports: weakness EENTM: reports: no symptoms reported Respiratory: reports: no symptoms reported Cardiac (ROS): reports: no symptoms reported ABD/GI: reports: no symptoms reported : reports: no symptoms reported Musculoskeletal: reports: back pain
[2018-12-02 16:17] VITALS: TEMP 98.3
[2018-12-02 16:19] VITALS: BP 146/63
[2018-12-02] MEDS: Atorvastatin Calcium 20 MG TAB PO SCH (18:20)
--- NOTE | 2018-12-03 01:38 | DIS ---
DATE OF ADMISSION: 11/28/2018 DATE OF DISCHARGE: 12/02/2018 DIAGNOSES: 1. Coronary artery disease. 2. Hypertension. 3. Hyperlipidemia. 4. Diabetes mellitus. 5. Chronic back pain-she has a pain doctor in [place], who manages her pain medication regimen. PROCEDURES: Coronary bypass grafting x3 - one is left internal mammary artery to LAD, #2 is saphenous vein grafts to OM and PDA. DESCRIPTION OF HOSPITAL STAY: Ms. Stepehnson was admitted for elective bypass as above. Postoperatively, I have been very surprised that how well she has done. She has really got up and moved much better than I ever thought she would with her chronic pain medications. She does like her pain medicine and likes to sleep a lot, but when she is up she actually gets up and walks. She has had no rhythm disturbances while she has been in the hospital. The discharge medication regimen is unchanged from her home regimen. At the time of discharge, she is ambulatory, tolerating a regular diet, having good bowel and bladder function. Incisions are clean and dry without evidence of infection. I will see her back in 2 weeks in the office[address] Dr. Ward will see her back in a month. Job ID: [id number]
== END 2018-12-02 19:43 | DRG 236 ==
LOC: SURG A 05:52 → CCU 12:00 → EDSTATUS 14:58 → 2NO 12-01 19:48
PROVIDERS: ADMIT Thoracic Surgery (Cardiothoracic Vascular Surgery); ATTEND Thoracic Surgery (Cardiothoracic Vascular Surgery)
PROC: 02100Z9 Bypass Coronary Artery, One Artery from Left Internal Mammary, Open Approach (ICD-10-PCS; principal; 2018-11-28)
PROC: 021109W Bypass Coronary Artery, Two Arteries from Aorta with Autologous Venous Tissue, Open Approach (ICD-10-PCS; 2018-11-28)
PROC: 06BQ4ZZ Excision of Left Saphenous Vein, Percutaneous Endoscopic Approach (ICD-10-PCS; 2018-11-28)
PROC: 06BP0ZZ Excision of Right Saphenous Vein, Open Approach (ICD-10-PCS; 2018-11-28)
PROC: 5A1221Z Performance of Cardiac Output, Continuous (ICD-10-PCS; 2018-11-28)
DX: I25.118 Atherosclerotic heart disease of native coronary artery with other forms of angina pectoris (principal); I45.10 Unspecified right bundle-branch block; E11.9 Type 2 diabetes mellitus without complications; I10 Essential (primary) hypertension; E78.2 Mixed hyperlipidemia; E78.5 Hyperlipidemia, unspecified; G89.29 Other chronic pain; M54.9 Dorsalgia, unspecified; Z88.6 Allergy status to analgesic agent; Z88.5 Allergy status to narcotic agent; Z88.0 Allergy status to penicillin; Z79.84 Long term (current) use of oral hypoglycemic drugs; Z79.899 Other long term (current) drug therapy
CPT/HCPCS: 36415; 36416; 36430; 71045; 80048; 80061; 82805; 85025; 85610; 85730; 86850; 86900; 86901; 93005; 93010; 93798; 94002; 94150; J0360; J0670; J1100; J1642; J1644; J1815; J1885; J1940; J1956; J2001; J2150; J2250; J2405; J2440; J2704; J3010; J3370; J3475; J3480; J3490; J7050; J7620; P9045; S0017; S0028

== ENCOUNTER 2018-12-21 05:13 | Emergency (ER) | payer MEDICARE, OTHER ==
[2018-12-21] MEDS ORDERED: Ketorolac Tromethamine 30 MG/ML VIAL ONE (05:32)
[2018-12-21] MEDS ORDERED: Pregabalin 50 MG CAP PO SCH (05:45)
== END 2018-12-21 06:00 | disposition home or self-care (01) ==
LOC: ERS 05:13
DX: G89.29 Other chronic pain (principal); E03.9 Hypothyroidism, unspecified; E11.9 Type 2 diabetes mellitus without complications; I25.10 Atherosclerotic heart disease of native coronary artery without angina pectoris; I10 Essential (primary) hypertension
CPT/HCPCS: 96372; J1885

== ENCOUNTER 2019-03-01 14:43 | Outpatient (CLI) | payer MEDICARE, OTHER ==
--- NOTE | 2019-03-01 15:00 | RAD ---
XR Cerv Sp Ap Lat STANDARD: 03/01/2019 12:00 AM CLINICAL HISTORY: Neck pain and back pain ACDF of C5-C6 is unchanged. Mild multilevel spondylosis is unchanged. Spinal alignment is within norm al limits. Lung apices are clear. Lateral masses are symmetric. IMPRESSION: Stable exam.
== END 2019-03-01 14:44 | disposition home or self-care (01) ==
LOC: TBSIIMAG 14:43
PROVIDERS: ATTEND Surgery
DX: M51.16 Intervertebral disc disorders with radiculopathy, lumbar region (principal); M48.062 Spinal stenosis, lumbar region with neurogenic claudication
CPT/HCPCS: 72040

== ENCOUNTER 2019-03-16 00:09 | Outpatient (CLI) | payer MEDICARE, OTHER ==
[2019-03-16 16:38] LABS: Hemoglobin 11.3 g/dL (12.0-16.0); Mean Corpuscular HGB CONC 30.6 g/dL (32.0-36.0); Mean Corpuscular Hemoglobin 22.7 pg (27.0-31.0); Mean Corpuscular Volume 74.3 fL (78.0-98.0); Mean Platelet Volume 10.6 fL (7.4-10.4); Platelet Count 228 thou/uL (130-400); RBC Distribution Width 16.1 % (11.5-14.5); Red Blood Cell (RBC) Count 4.97 mill/uL (4.20-5.40); White Blood Cell (WBC) Count 9.1 thou/uL (4.8-10.8)
[2019-03-16 16:42] LABS: PTT 27.5 SEC (22.9-36.1); Prothrombin Time 13.2 SEC (12.0-14.7)
[2019-03-16 17:00] LABS: Anion Gap 14 mmol/L (10-20); BUN (Urea Nitrogen) 14 mg/dL (9.8-20.1); Calc. Creatinine Clearance 0 mL/min (70-130); Calcium 9.1 mg/dL (7.8-10.44); Carbon Dioxide 24 mmol/L (23-31); Chloride 102 mmol/L (98-107); Estimated GFR-MDRD 73; Glucose 247 mg/dL (83-110); Potassium 3.6 mmol/L (3.5-5.1); Sodium 136 mmol/L (136-145)
== END 2019-03-16 00:10 | disposition home or self-care (01) ==
LOC: LABBT 00:09
PROVIDERS: ATTEND Surgery
DX: Z01.818 Encounter for other preprocedural examination (principal); M48.061 Spinal stenosis, lumbar region without neurogenic claudication; M54.16 Radiculopathy, lumbar region
CPT/HCPCS: 80048; 85027; 85610; 85730; 93005; 93010

== ENCOUNTER 2019-03-21 08:00 | Day surgery (SDC) | payer MEDICARE, OTHER ==
[2019-03-16 15:12] VITALS: BMI 28.4
[2019-03-21] MEDS ORDERED: Levofloxacin 500 mg/D5W 100 ml Premix Bag ONE (08:36)
[2019-03-21] MEDS ORDERED: Clindamycin/D5W 900 mg/50 ml Premix Bag ONE (08:36)
[2019-03-21] MEDS ORDERED: Thrombin 5000 UNITS/5 ML VIAL ONE ×2 (08:54→09:29)
[2019-03-21] MEDS ORDERED: Sodium Chloride 0.9% 0 ML ONE (08:54)
[2019-03-21] MEDS ORDERED: Bacitracin Zinc Ointment 30 gm TUBE ONE ×2 (08:54→09:29)
[2019-03-21] MEDS ORDERED: Scopolamine 1.5 mg/72 hour Patch ONE (08:57)
[2019-03-21] MEDS ORDERED: Sodium Chloride 0.9% 10 ML ONE (09:29)
[2019-03-21] MEDS ORDERED: Fentanyl 100 MCG/2 ML VIAL ONE ×4 (09:37→15:54)
[2019-03-21] MEDS ORDERED: PHENYLEPHRINE-NS 100 MCG/ML 10 ML SYRINGE ONE (11:14)
[2019-03-21] MEDS ORDERED: Glycopyrrolate 0.2 MG/ML 5 ML SYRINGE ONE (11:14)
[2019-03-21] MEDS ORDERED: Rocuronium Bromide 10 MG/ML (10ML VIAL) ONE (11:14)
[2019-03-21] MEDS ORDERED: Ondansetron PF 4 MG/2 ML Vial ONE (11:14)
[2019-03-21] MEDS ORDERED: Dexamethasone 20 MG/5 ML VIAL ONE (11:14)
[2019-03-21] MEDS ORDERED: Lidocaine 1% PF 5 ML VIAL ONE (11:14)
[2019-03-21] MEDS ORDERED: PROPOFOL 200 MG/20 ML VIAL ONE (11:14)
[2019-03-21] MEDS ORDERED: ePHEDrine 50 MG/ML VIAL ONE (11:14)
[2019-03-21] MEDS ORDERED: HYDROmorphone 2 MG/ML VIAL ONE ×2 (12:14→13:18)
[2019-03-21] MEDS ORDERED: Milk Of Magnesia 30 ML UDCUP PO PRN (12:38)
[2019-03-21] MEDS ORDERED: Fleet Enema 133 ML BOT PR PRN (12:38)
[2019-03-21] MEDS ORDERED: Bisacodyl 10 MG SUPP PR PRN (12:38)
[2019-03-21] MEDS ORDERED: Acetaminophen 325 MG TAB PO PRN (12:38)
[2019-03-21] MEDS ORDERED: Mag-Al 1200 mg/1200 mg/30 ML UDCUP PO PRN (12:38)
[2019-03-21] MEDS ORDERED: Promethazine HCl 25 MG/ML VIAL IM/IV PRN (12:38)
[2019-03-21] MEDS ORDERED: Promethazine HCl 25 MG/ML VIAL IM PRN (12:40)
[2019-03-21] MEDS ORDERED: HYDROmorphone 2 MG/ML VIAL SLOW IVP PRN (12:40)
[2019-03-21] MEDS ORDERED: Ondansetron HCl/PF 4 MG/2 ML Vial IVP PRN (12:40)
[2019-03-21] MEDS ORDERED: Promethazine HCl 25 MG/ML VIAL SLOW IVP PRN (12:40)
[2019-03-21] MEDS ORDERED: Meperidine HCl/PF 25 MG/ML VIAL SLOW IVP PRN (12:40)
[2019-03-21] MEDS ORDERED: EMU OIL TOP PRN (12:43)
[2019-03-21] MEDS ORDERED: AMMONIUM LACTATE TOP PRN (12:43)
[2019-03-21] MEDS: Sodium Chloride 0.9% 1,000 ML IV SCH (16:26)
[2019-03-21] MEDS: Pregabalin 50 MG CAP PO SCH ×2 (16:40→20:15)
[2019-03-21] MEDS: Clindamycin/D5W 900 MG in Premix Bag 1 BAG IVPB SCH (18:08)
[2019-03-21] MEDS: metFORMIN 500 MG TAB PO SCH (18:08)
[2019-03-21] MEDS: oxyCODONE 5 MG TAB PO PRN (19:11)
[2019-03-21] MEDS: Glimepiride 2 MG TAB PO SCH (19:12)
[2019-03-21] MEDS: Alogliptin 25 MG TAB PO SCH (20:14)
[2019-03-21] MEDS: Multivit, Therapeutic 1 TAB PO SCH (20:15)
[2019-03-21] MEDS: rOPINIRole HCl 0.5 MG TAB PO SCH (20:16)
[2019-03-21] MEDS: traMADol HCl 50 MG TAB PO PRN (20:35)
[2019-03-21] MEDS ORDERED: (Empagliflozin [Jardiance] 10 MG) PO SCH (21:00)
[2019-03-21] MEDS: Meperidine HCl/PF 25 MG/ML VIAL SLOW IVP PRN (23:21)
[2019-03-22] MEDS: Clindamycin/D5W 900 MG in Premix Bag 1 BAG IVPB SCH (00:33)
[2019-03-22] MEDS: oxyCODONE 5 MG TAB PO PRN ×2 (04:09→16:10)
[2019-03-22] MEDS: Meperidine HCl/PF 25 MG/ML VIAL SLOW IVP PRN ×2 (06:50→11:08)
[2019-03-22] MEDS ORDERED: Dextrose 5% in Water 1,000 ML IV PRN (08:10)
[2019-03-22] MEDS ORDERED: Dextrose 50% Abboject 50 ML SYRINGE SLOW IVP PRN (08:10)
[2019-03-22] MEDS ORDERED: Insulin Regular 300 UNITS/3 ML VIAL SC PRN ×2 (08:10)
[2019-03-22] MEDS: Calcium Carbonate 500 MG TAB PO SCH (08:32)
[2019-03-22] MEDS: Ascorbic Acid 500 mg Chewable Tablet PO SCH (08:33)
[2019-03-22] MEDS: Pregabalin 50 MG CAP PO SCH ×3 (08:34→20:49)
[2019-03-22] MEDS: metFORMIN 500 MG TAB PO SCH ×2 (08:36→17:06)
[2019-03-22] MEDS: Multivit, Therapeutic 1 TAB PO SCH ×2 (08:40→20:49)
[2019-03-22] MEDS: Furosemide 20 MG TAB PO SCH (08:40)
[2019-03-22] MEDS: Cyanocobalamin (Vitamin B-12) 1,000 MCG TAB PO SCH (08:41)
[2019-03-22] MEDS: Potassium Chloride 10 MEQ TAB PO SCH (08:43)
[2019-03-22] MEDS ORDERED: Amlodipine 10 MG TAB PO SCH (09:00)
[2019-03-22] MEDS ORDERED: Nebivolol HCl 5 MG TAB PO SCH (09:00)
[2019-03-22] MEDS: Glimepiride 2 MG TAB PO SCH ×2 (09:58→17:08)
--- NOTE | 2019-03-22 10:17 | PRG ---
DATE OF SERVICE: 03/22/2019 Ms. Stephenson is postoperative day 1 from multilevel lumbar laminectomy in situ fusion and right-sided L3-L4 diskectomy. She has had resolution in her leg pain and moving her extremities to command. She would like to pursue inpatient rehab in [place] closer to family and we will arrange for this. Job ID: [id number]
[2019-03-22] MEDS: Sodium Chloride 0.9% 1,000 ML IV SCH (10:36)
[2019-03-22] MEDS: Nebivolol HCl 5 MG TAB PO SCH ×2 (10:37→20:49)
[2019-03-22] MEDS: Amlodipine 5 MG TAB PO SCH ×2 (11:06→20:49)
[2019-03-22] MEDS: Diazepam 2 MG TAB PO PRN (11:07)
[2019-03-22] MEDS: Ergocalciferol 1.25 MG(50,000 UNITS) CAP PO SCH (12:00)
[2019-03-22] MEDS: Alogliptin 25 MG TAB PO SCH (20:49)
[2019-03-22] MEDS: rOPINIRole HCl 0.5 MG TAB PO SCH (20:50)
--- NOTE | 2019-03-22 22:03 | PDOC.PN ---
- Subjective Encounter Start Date: 03/22/19 Encounter Start Time: 14:30 Patient seen and examined for med mngt. Follows Dr Rangel. No CP/SOB. Refusing Insulin per RN. No new complaints. No overnight events - Objective MAR Reviewed: Yes Vital Signs & Weight: Vital Signs (12 hours) Temp Pulse Resp BP BP Pulse Ox 03/22/19 20:49 93 146/68 H 03/22/19 20:00 99.5 F 69 18 146/68 H 92 L 03/22/19 17:15 99.1 F 148/69 H 03/22/19 16:00 98.8 F 03/22/19 15:46 102.8 F H 93 16 147/82 H 91 L 03/22/19 11:51 98.2 F 78 14 131/67 93 L 03/22/19 11:06 82 145/69 H Weight Weight 171 lb I&O: 03/21/19 03/22/19 03/23/19 06:59 06:59 06:59 Intake Total 1405 1979 Balance 1405 1979 Additional Labs: Accuchecks 03/22/19 03/22/19 03/22/19 21:36 15:48 11:52 POC Glucose 157 H 208 H 228 H Laboratory Tests 01/17/19 01/17/19 03/16/19 13:45 13:45 16:15 BUN 14 Creatinine 0.77 Hemoglobin A1c 6.2 H Cholesterol 202 H EKG Reviewed by me: Yes (SR) Phys Exam - Physical Examination Constitutional: NAD Respiratory: no wheezing, no rhonchi Cardiovascular: RRR, no rub Gastrointestinal: soft, non-tender, positive bowel sounds Musculoskeletal: no edema Dx/Plan - Plan DVT proph w/SCDs IMPRESSION: DM2 HTN HLD CKD 2 CAD s/p stent Chronic pain syndrome PLAN: Cont Glimepiride/Metformin Cont Telmisartan, BB and Amlodipine with holding parameters Mild sliding scale Cont other meds as below Full code. DPAO - daughter Review of Systems - Review of Systems Respiratory: negative: Cough, Dry, Shortness of Breath, Hemoptysis, SOB with Excertion, Pleuritic Pain, Sputum, Wheezing Cardiovascular: negative: chest pain, palpitations, orthopnea, paroxysmal nocturnal dyspnea, edema, light headedness, other - Medications/Allergies Allergies/Adverse Reactions: Allergies Allergy/AdvReac Type Severity Reaction Status Date / Time aspirin Allergy N/V Verified 03/16/19 15:12 morphine Allergy N/V Verified 03/16/19 15:12 Penicillins Allergy N/V Verified 03/16/19 15:12 Medications: Current Medications Acetaminophen (Tylenol) 650 mg PO Q4H PRN PRN Reason: Headache/Fever or Pain Al Hydroxide/Mg Hydroxide (Maalox) 30 ml PO Q4H PRN PRN Reason: Indigestion Alogliptin Benzoate (Alogliptin) 25 mg PO QPM [facility] Last Admin: 03/22/19 20:49 Dose: 25 mg Amlodipine Besylate (Norvasc) 5 mg PO BID [facility] Last Admin: 03/22/19 20:49 Dose: 5 mg Ascorbic Acid (Vitamin C) 1,000 mg PO QAM [facility] Last Admin: 03/22/19 08:33 Dose: 1,000 mg Bisacodyl (Dulcolax) 10 mg [place] Q12H PRN PRN Reason: Constipation Calcium Carbonate (Oscal-500) 1,000 mg PO DAILY [facility] Last Admin: 03/22/19 08:32 Dose: 1,000 mg Cyanocobalamin (Vitamin B-12) 2,500 mcg PO QAM [facility] Last Admin: 03/22/19 08:41 Dose: 2,500 mcg Dextrose/Water (Dextrose 50%) 25 gm SLOW IVP PRN PRN PRN Reason: Hypoglycemia Diazepam (Valium) 2 mg PO Q8H PRN PRN Reason: Anxiety Last Admin: 03/22/19 11:07 Dose: 2 mg Ergocalciferol (Drisdol) 1.25 mg PO Q7D [facility] Last Admin: 03/22/19 12:00 Dose: Not Given Fentanyl (Duragesic) 25 mcg TD Q3DAYS [facility] Furosemide (Lasix) 20 mg PO DAILY [facility] Last Admin: 03/22/19 08:40 Dose: 20 mg Glimepiride (Amaryl) 2 mg PO BID[facility] Last Admin: 03/22/19 17:08 Dose: 2 mg Glucagon (Glucagon) 1 mg IM PRN PRN PRN Reason: Hypoglycemia Sodium Chloride (Normal Saline 0.9%) 1,000 mls @ 50 mls/hr IV .Q20H [facility] Last Admin: 03/22/19 10:36 Dose: Not Given Levofloxacin 500 mg/ Device 100 mls @ 100 mls/hr IVPB 0900 [facility] Last Admin: 03/22/19 08:44 Dose: 100 mls Dextrose/Water (D5w) 1,000 mls @ 0 mls/hr IV .Q0M PRN PRN Reason: Hypoglycemia Insulin Human Regular (Humulin R) 0 units SC .MILD SLIDING SCALE PRN PRN Reason: Mild Correctional Scale Insulin Human Regular (Humulin R) 0 units SC .BEDTIME SLIDING SC PRN PRN Reason: Bedtime Correctional Scale Magnesium Hydroxide (Milk Of Magnesium) 30 ml PO Q12H PRN PRN Reason: Constipation Meperidine HCl (Demerol) 25 mg SLOW IVP Q2H PRN PRN Reason: Severe Pain (7-10) Last Admin: 03/22/19 11:08 Dose: 25 mg Metformin HCl (Glucophage) 1,000 mg PO BID[facility] Last Admin: 03/22/19 17:06 Dose: 1,000 mg Multivitamins (Theragran) 1 tab PO BID [facility] Last Admin: 03/22/19 20:49 Dose: 1 tab Nebivolol (Bystolic) 5 mg PO BID [facility] Last Admin: 03/22/19 20:49 Dose: 5 mg (Ammonium Lactate/Emu Oil [Emu-Lac Hydrating Cream] 1 Applic) 1 applic TOP BID PRN PRN Reason: Pain (Empagliflozin [ (Jardiance] 10 Mg)) 10 mg PO QPM [facility] Oxycodone HCl (Oxycodone Ir) 10 mg PO Q8H PRN PRN Reason: Moderate Pain (4-6) Last Admin: 03/22/19 16:10 Dose: 10 mg Potassium Chloride (Klor-Con 10) 10 meq PO QAM[facility] Last Admin: 03/22/19 08:43 Dose: 10 meq Pregabalin (Lyrica) 100 mg PO TID [facility] Last Admin: 03/22/19 20:49 Dose: 100 mg Promethazine HCl (Phenergan) 12.5 mg IM/IV Q4H PRN PRN Reason: Nausea/Vomiting Ropinirole HCl (Requip) 0.5 mg PO [facility] Last Admin: 03/22/19 20:50 Dose: 0.5 mg Sodium Biphosphate/Sodium Phosphate (Fleet Enema) 133 ml [place] ONE PRN PRN Reason: Constipation Stop: 03/25/19 12:39 Sodium Chloride (Flush - Normal Saline) 10 ml IVF PRN PRN PRN Reason: Saline Flush Telmisartan (Micardis) 40 mg PO BID [facility] Last Admin: 03/22/19 20:50 Dose: 40 mg Thyroid ([place] Thyroid) 180 mg PO QAM [facility] Last Admin: 03/22/19 09:59 Dose: 180 mg Tramadol HCl (Ultram) 50 mg PO Q6H PRN PRN Reason: Mild Pain (1-3) Last Admin: 03/21/19 20:35 Dose: 50 mg
[2019-03-23] MEDS: oxyCODONE 5 MG TAB PO PRN ×2 (02:30→11:06)
[2019-03-23] MEDS: Diazepam 2 MG TAB PO PRN ×2 (02:38→13:01)
[2019-03-23] MEDS: Sodium Chloride 0.9% 1,000 ML IV SCH (04:47)
[2019-03-23] MEDS: traMADol HCl 50 MG TAB PO PRN ×2 (07:13→13:56)
--- NOTE | 2019-03-23 08:37 | OP ---
DATE OF PROCEDURE: 03/21/2019 LOCATION: OR 12. WOUND CLASSIFICATION: Type 1 wound. HOSPITAL CHIEF FINANCIAL OFFICER: Leonardo Ron PA-C PREPROCEDURE DIAGNOSES: Multilevel lumbar stenosis with low back and leg pain and lumbar disk extrusion and lumbar spondylolisthesis. POSTPROCEDURE DIAGNOSES: Multilevel lumbar stenosis with low back and leg pain and lumbar disk extrusion and lumbar spondylolisthesis. PROCEDURES PERFORMED: 1. L2-L3, L3-L4, and L4-L5 laminectomies, partial facetectomies, and foraminotomies. 2. Right L3-L4 diskectomy. 3. Use of operative microscope for microdissection. 4. L4-L5 in situ fusion with local bone autograft obtained from the same incision and allograft. DESCRIPTION OF PROCEDURE: After informed consent was obtained from the patient, the patient was brought to the OR. Proper patient, pause, and identification were carried out. She was placed under excellent general endotracheal anesthesia and positioned prone on the OR table. All appropriate points were padded. We identified the L2 through L5 segments and a linear soheila was made over this region. This area was sterilely cleansed, prepared, and draped. Proper patient, pause, and identification were carried out. The wound was then opened with a combination of sharp, monopolar, and blunt dissection. The L2, L3, L4, and L5 dorsal spines and lamina were exposed. Localization film confirmed area of interest. We then performed L2, L3, L4, and L5 laminectomies, partial facetectomies, and foraminotomies. Microscope was brought in for microdissection. A right L3-L4 diskectomy was performed. We then decorticated the posterolateral regions at L4-L5 for arthrodesis preparation and the local bone autograft obtained from the same incision. Allograft was laid out over the posterolateral gutters. The wound was copiously irrigated. Hemostasis was maximized throughout. The wound was then closed in anatomic layers following sprinkling of vancomycin powder. The patient emerged from anesthesia. Job ID: [id number]
[2019-03-23] MEDS ORDERED: Senokot S 8.6-50 MG TAB PO SCH (09:00)
[2019-03-23] MEDS ORDERED: Polyethylene Glycol 3350 17 GM Packet PO SCH (09:00)
[2019-03-23] MEDS: Cyanocobalamin (Vitamin B-12) 1,000 MCG TAB PO SCH (09:44)
[2019-03-23] MEDS: Ascorbic Acid 500 mg Chewable Tablet PO SCH (09:44)
[2019-03-23] MEDS: Potassium Chloride 10 MEQ TAB PO SCH (09:45)
[2019-03-23] MEDS: Calcium Carbonate 500 MG TAB PO SCH (09:45)
[2019-03-23] MEDS: metFORMIN 500 MG TAB PO SCH ×2 (09:45→16:37)
[2019-03-23] MEDS: Multivit, Therapeutic 1 TAB PO SCH (09:46)
[2019-03-23] MEDS: Nebivolol HCl 5 MG TAB PO SCH (09:46)
[2019-03-23] MEDS: Amlodipine 5 MG TAB PO SCH (09:46)
[2019-03-23] MEDS: Furosemide 20 MG TAB PO SCH (09:46)
[2019-03-23] MEDS: Pregabalin 50 MG CAP PO SCH ×2 (09:47→15:12)
--- NOTE | 2019-03-23 09:56 | PRG ---
DATE OF SERVICE: 03/23/2019 SUBJECTIVE: Ms. Stephenson is postoperative day #2 from multilevel lumbar laminectomy, diskectomy, and in situ fusion. She has no radiating pain into her legs, but does have groin and low back pain. She needs to move more and we are awaiting retirement a rehab placement. Her pain is due to muscle spasm and typical postoperative pain. Job ID: [id number]
[2019-03-23] MEDS: Glimepiride 2 MG TAB PO SCH (11:07)
[2019-03-23] MEDS: Ergocalciferol 1.25 MG(50,000 UNITS) CAP PO SCH (11:08)
--- NOTE | 2019-03-23 12:53 | PDOC.PN ---
- Subjective Encounter Start Date: 03/23/19 Encounter Start Time: 11:30 Patient seen and examined for med mngt. No CP/SOB/Palpitations. No new complaints. No overnight events - Objective MAR Reviewed: Yes Vital Signs & Weight: Vital Signs (12 hours) Temp Pulse Resp BP Pulse Ox 03/23/19 11:36 100.5 F H 80 18 135/65 93 L 03/23/19 07:40 99.2 F 75 16 134/72 92 L 03/23/19 04:00 98.4 F 90 18 145/71 H 93 L Weight Weight 171 lb I&O: 03/22/19 03/23/19 03/24/19 06:59 06:59 06:59 Intake Total 1405 2380 Balance 1405 2380 Additional Labs: Accuchecks 03/23/19 03/23/19 03/22/19 10:52 05:36 21:36 POC Glucose 184 H 141 H 157 H 03/22/19 15:48 POC Glucose 208 H Phys Exam - Physical Examination Constitutional: NAD Respiratory: no wheezing, no rhonchi Cardiovascular: RRR, no rub Gastrointestinal: soft, non-tender, positive bowel sounds Musculoskeletal: no edema Neurological: moves all 4 limbs Dx/Plan - Plan DVT proph w/SCDs IMPRESSION: DM2 HTN HLD CKD 2 CAD s/p stent Chronic pain syndrome PLAN: Cont Glimepiride/Metformin with mild sliding scale Cont Telmisartan, BB and Amlodipine with holding parameters Cont other meds as below Resume ASA when ok with NSG Review of Systems - Review of Systems Respiratory: negative: Cough, Dry, Shortness of Breath, Hemoptysis, SOB with Excertion, Pleuritic Pain, Sputum, Wheezing Cardiovascular: negative: chest pain, palpitations, orthopnea, paroxysmal nocturnal dyspnea, edema, light headedness, other - Medications/Allergies Allergies/Adverse Reactions: Allergies Allergy/AdvReac Type Severity Reaction Status Date / Time aspirin Allergy N/V Verified 03/16/19 15:12 morphine Allergy N/V Verified 03/16/19 15:12 Penicillins Allergy N/V Verified 03/16/19 15:12 Medications: Current Medications Acetaminophen (Tylenol) 650 mg PO Q4H PRN PRN Reason: Headache/Fever or Pain Al Hydroxide/Mg Hydroxide (Maalox) 30 ml PO Q4H PRN PRN Reason: Indigestion Alogliptin Benzoate (Alogliptin) 25 mg PO QPM [facility] Last Admin: 03/22/19 20:49 Dose: 25 mg Amlodipine Besylate (Norvasc) 5 mg PO BID [facility] Last Admin: 03/23/19 09:46 Dose: 5 mg Ascorbic Acid (Vitamin C) 1,000 mg PO QAM [facility] Last Admin: 03/23/19 09:44 Dose: 1,000 mg Bisacodyl (Dulcolax) 10 mg [place] Q12H PRN PRN Reason: Constipation Calcium Carbonate (Oscal-500) 1,000 mg PO DAILY [facility] Last Admin: 03/23/19 09:45 Dose: 1,000 mg Cyanocobalamin (Vitamin B-12) 2,500 mcg PO QAM [facility] Last Admin: 03/23/19 09:44 Dose: 2,500 mcg Dextrose/Water (Dextrose 50%) 25 gm SLOW IVP PRN PRN PRN Reason: Hypoglycemia Diazepam (Valium) 2 mg PO Q8H PRN PRN Reason: Anxiety Last Admin: 03/23/19 02:38 Dose: 2 mg Ergocalciferol (Drisdol) 1.25 mg PO Q7D [facility] Last Admin: 03/23/19 11:08 Dose: 1.25 mg Fentanyl (Duragesic) 25 mcg TD Q3DAYS [facility] Furosemide (Lasix) 20 mg PO DAILY [facility] Last Admin: 03/23/19 09:46 Dose: 20 mg Glimepiride (Amaryl) 2 mg PO BID[facility] Last Admin: 03/23/19 11:07 Dose: 2 mg Glucagon (Glucagon) 1 mg IM PRN PRN PRN Reason: Hypoglycemia Sodium Chloride (Normal Saline 0.9%) 1,000 mls @ 50 mls/hr IV .Q20H [facility] Last Admin: 03/23/19 04:47 Dose: Not Given Levofloxacin 500 mg/ Device 100 mls @ 100 mls/hr IVPB 0900 [facility] Last Admin: 03/23/19 09:48 Dose: 100 mls Dextrose/Water (D5w) 1,000 mls @ 0 mls/hr IV .Q0M PRN PRN Reason: Hypoglycemia Insulin Human Regular (Humulin R) 0 units SC .MILD SLIDING SCALE PRN PRN Reason: Mild Correctional Scale Insulin Human Regular (Humulin R) 0 units SC .BEDTIME SLIDING SC PRN PRN Reason: Bedtime Correctional Scale Magnesium Hydroxide (Milk Of Magnesium) 30 ml PO Q12H PRN PRN Reason: Constipation Meperidine HCl (Demerol) 25 mg SLOW IVP Q2H PRN PRN Reason: Severe Pain (7-10) Last Admin: 03/22/19 11:08 Dose: 25 mg Metformin HCl (Glucophage) 1,000 mg PO BID[facility] Last Admin: 03/23/19 09:45 Dose: 1,000 mg Multivitamins (Theragran) 1 tab PO BID [facility] Last Admin: 03/23/19 09:46 Dose: 1 tab Nebivolol (Bystolic) 5 mg PO BID [facility] Last Admin: 03/23/19 09:46 Dose: 5 mg (Ammonium Lactate/Emu Oil [Emu-Lac Hydrating Cream] 1 Applic) 1 applic TOP BID PRN PRN Reason: Pain (Empagliflozin [ (Jardiance] 10 Mg)) 10 mg PO QPM [facility] Oxycodone HCl (Oxycodone Ir) 10 mg PO Q8H PRN PRN Reason: Moderate Pain (4-6) Last Admin: 03/23/19 11:06 Dose: 10 mg Polyethylene Glycol (Miralax) 17 gm PO DAILY [facility] Last Admin: 03/23/19 09:48 Dose: 17 gm Potassium Chloride (Klor-Con 10) 10 meq PO QAM[facility] Last Admin: 03/23/19 09:45 Dose: 10 meq Pregabalin (Lyrica) 100 mg PO TID [facility] Last Admin: 03/23/19 09:47 Dose: 100 mg Promethazine HCl (Phenergan) 12.5 mg IM/IV Q4H PRN PRN Reason: Nausea/Vomiting Ropinirole HCl (Requip) 0.5 mg PO [facility] Last Admin: 03/22/19 20:50 Dose: 0.5 mg Senna/Docusate Sodium (Senokot S) 2 tab PO BID [facility] Last Admin: 03/23/19 09:46 Dose: 2 tab Sodium Biphosphate/Sodium Phosphate (Fleet Enema) 133 ml [place] ONE PRN PRN Reason: Constipation Stop: 03/25/19 12:39 Sodium Chloride (Flush - Normal Saline) 10 ml IVF PRN PRN PRN Reason: Saline Flush Telmisartan (Micardis) 40 mg PO BID [facility] Last Admin: 03/23/19 09:48 Dose: 40 mg Thyroid ([place] Thyroid) 180 mg PO QAM [facility] Last Admin: 03/23/19 11:08 Dose: 180 mg Tramadol HCl (Ultram) 50 mg PO Q6H PRN PRN Reason: Mild Pain (1-3) Last Admin: 03/23/19 07:13 Dose: 50 mg
[2019-03-23] MEDS ORDERED: traMADol HCl 50 MG TAB PO SCH (15:30)
[2019-03-23 16:38] VITALS: BP 119/67; TEMP 98.7
== END 2019-03-23 17:32 ==
LOC: SDC 08:00 → SURG A 12:38 → SDC 03-23 17:32
PROVIDERS: ATTEND Surgery
PROC: 0ST20ZZ Resection of Lumbar Vertebral Disc, Open Approach (ICD-10-PCS; principal; 2019-03-21)
PROC: 00NY0ZZ Release Lumbar Spinal Cord, Open Approach (ICD-10-PCS; 2019-03-21)
DX: M48.061 Spinal stenosis, lumbar region without neurogenic claudication (principal); M43.16 Spondylolisthesis, lumbar region; E11.22 Type 2 diabetes mellitus with diabetic chronic kidney disease; I12.9 Hypertensive chronic kidney disease with stage 1 through stage 4 chronic kidney disease, or unspecified chronic kidney disease; N18.2 Chronic kidney disease, stage 2 (mild); E78.5 Hyperlipidemia, unspecified; I25.10 Atherosclerotic heart disease of native coronary artery without angina pectoris; G89.4 Chronic pain syndrome; Z79.899 Other long term (current) drug therapy; Z79.4 Long term (current) use of insulin; Z95.5 Presence of coronary angioplasty implant and graft; Z88.0 Allergy status to penicillin; Z88.5 Allergy status to narcotic agent; Z88.8 Allergy status to other drugs, medicaments and biological substances
CPT/HCPCS: 36416; 76000; J1100; J1170; J1956; J2001; J2175; J2405; J2704; J3010; J3370; J3490

== ENCOUNTER 2019-08-06 19:15 | Observation (INO) | payer MEDICARE, OTHER ==
[~2019-08-06 19:15] MED LIST: Dexamethasone 20 MG/5 ML VIAL ONE; Lidocaine 1% PF 5 ML VIAL ONE; Ondansetron PF 4 MG/2 ML Vial ONE; PROPOFOL 200 MG/20 ML VIAL ONE
[2019-08-06] MEDS ORDERED: Promethazine HCl 25 MG/ML VIAL SLOW IVP PRN (21:02)
[2019-08-06] MEDS ORDERED: Ondansetron HCl/PF 4 MG/2 ML Vial IVP PRN (21:02)
[2019-08-06] MEDS ORDERED: Promethazine HCl 25 MG/ML VIAL IM PRN (21:02)
[2019-08-06] MEDS ORDERED: Fentanyl 100 MCG/2 ML VIAL ONE (21:08)
[2019-08-06] MEDS ORDERED: Promethazine HCl 25 MG/ML VIAL ONE (21:10)
[2019-08-06] MEDS ORDERED: Chloraseptic Spray 180 ml Bottle PO PRN (22:02)
[2019-08-06] MEDS ORDERED: Dextrose 5% in Water 1,000 ML IV PRN (22:03)
[2019-08-06] MEDS ORDERED: HumaLOG 300 UNITS/3 ML VIAL SC PRN (22:03)
[2019-08-06] MEDS ORDERED: Dextrose 50% Abboject 50 ML SYRINGE SLOW IVP PRN (22:03)
[2019-08-06 22:27] VITALS: BMI 28.0
[2019-08-06] MEDS ORDERED: Diazepam 2 MG TAB PO PRN (23:04)
[2019-08-06] MEDS ORDERED: rOPINIRole HCl 1 MG TAB PO SCH (23:15)
[2019-08-06] MEDS ORDERED: Amlodipine 10 MG TAB PO SCH (23:15)
[2019-08-06] MEDS ORDERED: Alogliptin 25 MG TAB PO SCH (23:30)
[2019-08-06] MEDS: Pregabalin 50 MG CAP PO SCH (23:38)
[2019-08-06] MEDS: oxyCODONE 5 MG TAB PO SCH (23:40)
[2019-08-06] MEDS ORDERED: Senokot S 8.6-50 MG TAB PO PRN (23:44)
[2019-08-06] MEDS ORDERED: Acetaminophen 325 MG TAB PO PRN (23:44)
--- NOTE | 2019-08-07 00:26 | HP ---
PRIMARY CARE PHYSICIAN: Dr. Leiva. CHIEF COMPLAINT: Swallowed foreign body and obstruction. HISTORY OF PRESENT ILLNESS: Ms. Stephenson is a 79-year-old female, who was eating potato chips last night, one became lodged in her esophagus and she was unable to tolerate any liquid or solid food. She went to the ER in [place], who then transferred her to [facility] for GI consult and possibly EGD to remove the foreign body. She was taken to the endoscopy suite, where EGD was performed and Dr. Horn was successfully able to remove the food impaction. There was note that [place] ER did try glucagon without success and for that she was shipped for EGD removal. She tolerated the procedure well and was admitted overnight to the medicine service for observation with likely discharge on 08/07/2019. The patient does report that she has an MRI of her lumbar and cervical spine tomorrow and that she has already arranged for sedation for those procedures and will most likely go home if she does well overnight after the successful MRI tomorrow and she would be released home. REVIEW OF SYSTEMS: Pain to her throat, drooling, inability to swallow secretions, food or liquids, has some chronic back pain, leg pain, neuropathy. All other systems are reviewed and are negative unless mentioned in the HPI. 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 PAST SURGICAL HISTORY: CABG x2, cervical disk surgery, lumbar surgery. PSYCHIATRIC HISTORY: Includes anxiety. SOCIAL HISTORY: Denies any alcohol use or drug use. No smoking history. Lives alone. She is a . Reports that she does not drive. She will rely on friends and family to help get which she needs to go. She uses a cane and a rollator for help with ambulation. PHYSICAL EXAMINATION: VITAL SIGNS: Blood pressure 188/91, pulse is 95, respirations 18, temp is 99.1, PO2 sats are 96% on room air. CONSTITUTIONAL: The patient is nontoxic appearing. She is alert and oriented to person, place, and time. HEENT: Head is atraumatic and normocephalic. Eyes; eyelids are normal to inspection. Pupils are equally round and reactive to light. ENT; mouth exam is normal. Mucous membranes are moist. NECK: Normal range of motion. Trachea is midline. RESPIRATORY/CHEST: Breath sounds are clear. Chest expansion is equal. CARDIOVASCULAR: Regular heart rate and rhythm. Heart sounds are normal. NEURO: The patient is oriented to person, place, and time. Speech is normal. There is no focal motor or sensory deficits. PSYCH: Oriented to person, place, and time. Normal affect. EXTREMITIES: Lower extremities, normal range of motion. Strength is normal. Sensation is intact. Pedal pulses are equal bilaterally. KNOWN ALLERGIES: The patient has an intolerance to aspirin, morphine, and penicillins. She reports that these gave her significant nausea, but she is not truly allergic to any of these. CURRENT MEDICATIONS: 1. Norvasc 10 mg p.o. q.a.m. 2. Ammonia lactate-Emu oil one application topical b.i.d. 3. Vitamin B12 of 2000 mcg sublingual q.a.m. 4. Diazepam 0.5 mg p.o. q.6 hours as needed. 5. Jardiance 10 mg p.o. q.p.m. 6. Vitamin D2 of 50,000 units p.o. q.week. 7. Fentanyl 125 mcg one patch q.3 days. 8. Amaryl 2 mg p.o. b.i.d. 9. Metformin 1000 mg p.o. b.i.d. 10. Bystolic 10 mg p.o. q.a.m. 11. Oxycodone 10 mg p.o. q.8 hours. 12. Lyrica 100 mg p.o. q.8 hours. 13. Ropinirole 4 mg p.o. b.i.d. 14. Januvia 100 mg p.o. q.p.m. 15. Micardis 80 mg p.o. q.a.m. 16. [place] Thyroid 180 mg p.o. q.a.m. PLAN/ASSESSMENT: 1. Observation overnight postop EGD. Ensure that she has no swelling or any airway issues. She will most likely go home tomorrow once a rider arrives. She does have an MRI with scheduled sedation with anesthesia tomorrow at 11 and/or 1. When she comes back from this procedure, the plan is to send her home. She is agreeable to this plan. 2. Hypertension. We will restart home medications trend. 3. Diabetes type 2. We will restart home medications. We will hold the metformin for now. Add a sliding scale before meals and at bedtime Accu-Cheks. 4. Chronic pain syndrome. We will restart home medications. 5. Restless legs. We will restart home medications. 6. Hypothyroidism. We will restart home medications. 7. Gastrointestinal and deep venous thrombosis prophylaxis has been started. 8. Hospital course is dependent on clinical findings. Job ID: [id number]
[2019-08-07] MEDS ORDERED: Famotidine/PF 20 mg/2ml Vial SLOW IVP SCH (00:30)
--- NOTE | 2019-08-07 02:39 | OP ---
DATE OF PROCEDURE: 08/06/2019 PROCEDURES PERFORMED: 1. Esophagogastroduodenoscopy. 2. Esophagoscopy with removal of foreign body. PREOPERATIVE DIAGNOSES: Dysphagia, foreign body impaction in esophagus. POSTOPERATIVE DIAGNOSES: 1. Large amount of milky white material in the esophagus filling the esophageal lumen suctioned out. 2. Large foreign body with what appears to be vegetable matter with multiple fragmentation that is actually almost like a vegetable ball in the esophagus blocking the lumen. DESCRIPTION OF PROCEDURE: The patient was initially placed in left lateral position and was given sedation by Anesthesia Department. The throat was anesthestized with Cetacaine spray. A Pentax video gastroscope under direct vision passed down the oropharynx. The patient already vegetable material. Because of the above reason, the scope removed. The patient was intubated and was given sedation by Anesthesia Department. A Pentax video gastroscope under direct vision passed down the esophagus. The patient had large amount of milky thick secretion in the stomach. The suction was used to suck out most of it. After suctioning out, I saw almost like a mixed vegetable ball like material in the esophageal lumen occupying completely blocking it. There were multiple small pieces stuck together that appears to be more of a vegetable matter. She tells me that blocking the thing. It is almost probably like a ball like thing. This could not be removed piecemeal because of the large size and multiple fragments. So next I used the scope as a pusher and gently in a circumferential manner pushed down into the stomach. The scope was withdrawn back to the esophagus and there were multiple fragments of vegetable matter that has to be washed down and pushed down into esophagus. Ultimately, the esophageal lumen was completely cleared of foreign body. The stomach showed the food material in the fundus and greater curvature. The gastric body, gastric antrum and duodenum, no pathology. The scope was carefully withdrawn from the throat all the way up to the upper esophagus and again careful examination was done to make sure there was no visible foreign body. The scope was advanced back into the stomach. There was no foreign body in the stomach. The scope was withdrawn back into the throat and again careful examination of the throat to make sure there was no piece left there and there was some milky white material in small fragments that was suctioned. At the end of the procedure, throat appeared very clean and there was no evidence of foreign body. PLAN: Hospitalize the patient overnight for observation and if she does well, we will discharge home tomorrow. The plan is to bring her back probably in a couple of days to have a second look to make sure we do not see any esophageal mass or anything. Job ID: [id number]
[2019-08-07] MEDS: HumaLOG 300 UNITS/3 ML VIAL SC PRN ×2 (05:41→16:32)
[2019-08-07] MEDS ORDERED: Mag-Al 1200 mg/1200 mg/30 ML UDCUP PO SCH (05:45)
[2019-08-07] MEDS ORDERED: Pregabalin 50 MG CAP PO SCH (06:00)
[2019-08-07 06:05] LABS: Anion Gap 22 mmol/L (10-20); BUN (Urea Nitrogen) 20 mg/dL (9.8-20.1); Calc. Creatinine Clearance 48 mL/min (70-130); Calcium 9.8 mg/dL (7.8-10.44); Carbon Dioxide 15 mmol/L (23-31); Chloride 110 mmol/L (98-107); Estimated GFR-MDRD 45; Glucose 546 mg/dL (83-110); Potassium 4.8 mmol/L (3.5-5.1); Sodium 142 mmol/L (136-145)
[2019-08-07 06:27] LABS: #Lymphocytes 1.3 thou/uL (1.20-3.40); #Monocytes 0.2 thou/uL (0.11-0.59); #Neutrophils 13.3 thou/uL (1.40-6.50); %Basophils 0.3 % (0.0-1.0); %Eosinophils 0.1 % (0.0-10.0); %Lymphocytes 8.6 % (21.0-51.0); %Monocytes 1.1 % (0.0-10.0); Hemoglobin 10.5 g/dL (12.0-16.0); Hypochromia SLIGHT = 6-15 cells (100X) (0-5/hpf); MDiff Complete? YES; Mean Corpuscular HGB CONC 30.7 g/dL (32.0-36.0); Mean Corpuscular Hemoglobin 21.9 pg (27.0-31.0); Mean Corpuscular Volume 71.4 fL (78.0-98.0); Mean Platelet Volume 11.8 fL (7.4-10.4); Microcytosis SLIGHT = 6-15 cells (100X) (0-5/hpf); Platelet Count 236 thou/uL (130-400); RBC Distribution Width 17.2 % (11.5-14.5); Red Blood Cell (RBC) Count 4.82 mill/uL (4.20-5.40); White Blood Cell (WBC) Count 14.8 thou/uL (4.8-10.8)
[2019-08-07] MEDS: oxyCODONE 5 MG TAB PO SCH ×2 (07:28→15:23)
[2019-08-07] MEDS: Pregabalin 50 MG CAP PO SCH ×2 (07:29→15:24)
[2019-08-07] MEDS: Nebivolol HCl 5 MG TAB PO SCH ×2 (07:29→09:41)
[2019-08-07] MEDS ORDERED: Alogliptin 25 MG TAB PO SCH ×2 (09:00→21:00)
[2019-08-07] MEDS: Losartan 25 MG TAB PO SCH (09:41)
[2019-08-07] MEDS: Amlodipine 10 MG TAB PO SCH (09:42)
[2019-08-07] MEDS: Glimepiride 2 MG TAB PO SCH ×2 (09:42→16:31)
[2019-08-07] MEDS: rOPINIRole HCl 1 MG TAB PO SCH ×2 (09:42→20:32)
[2019-08-07] MEDS: Famotidine 20 MG TAB PO SCH ×2 (09:42→20:32)
--- NOTE | 2019-08-07 10:31 | CON ---
DATE OF CONSULTATION: REASON FOR CONSULTATION: Dysphagia, foreign body impaction in esophagus. HISTORY OF PRESENT ILLNESS: Ms. Ying Stephenson is a very pleasant 79-year-old female, who lives in [place]. The patient was eating some potato chips and some vegetable chips last night. She felt as chips stuck in the esophagus. She has complaints of dysphagia. She had no history of any acid reflux. The patient does not eat red meat, but most of the time they brought fish and chicken when she is to go somewhere easily. No history of dysphagia to any other solid food. No history of dysphagia to bread etc. The patient had this stuck in the esophagus the last night, but she went to [place] [facility]. They tried to give her some Glucagon and Protonix, . She was transferred here because she could not really swallow any water. The patient appears to be actually very comfortable. Normally you would have frothing in the mouth, coughing and spitting, but she is not really doing that. She looks very comfortable. She still feels when she is drinking some water, the water does not go very easily. She also feels some pain over the retrosternal area when she tries to swallow. She has no relevant symptoms. ALLERGIES: NONE EXCEPT ASPIRIN, PENICILLIN. CAUSE DIARRHEA. SOCIAL HISTORY: The patient does not smoke or drink alcohol. MEDICAL ILLNESSES: 1. Hypertension. 2. Diabetes mellitus. 3. Hyperlipidemia. 4. Coronary artery disease, status post coronary artery bypass graft in November [address] Wali Locke. 5. Osteoarthritis of the spine. PAST SURGICAL HISTORY: 1. Status post back surgery by Dr. Villagomez in March 2019. 2. Status post surgery of the cervical spine with screws placed by Dr. Villagomez in June 2019. 3. Other surgeries, she had no surgeries over the abdomen. MEDICATIONS: Multiple and reviewed. REVIEW OF SYSTEMS: CONSTITUTIONAL: No weight loss. No fever. Energy level is very good. HEAD: No chronic headache. No dizziness. Eyes, no diplopia. No impaired vision. Ears, no ear pain, or discharge. Nose, no nosebleed. Throat, no sore throat. NECK: She has lessened stiffness of the cervical spine area. LUNGS: No chronic coughing. No hemoptysis. No dyspnea. CARDIOVASCULAR: No chest pain. No palpitation, dyspnea, orthopnea, or PND. GI: No hematochezia. No diarrhea. No abdominal pain, nausea, or vomiting. : No dysuria, or hematuria. MUSCULOSKELETAL: Back pain and also she has some tingling and numbness over the lower extremities and also she has some numbness over the hands on both sides. by Dr. Villagomez. PHYSICAL EXAMINATION: GENERAL: She is a very pleasant female, appears very comfortable. VITAL SIGNS: Stable. Pulse is 70, blood pressure 130/76. HEENT: Conjunctivae clear. NECK: Supple. No adenitis or thyromegaly noted. CARDIOVASCULAR SYSTEM: First and second heard sounds are normal. LUNGS: Clear to auscultation. ABDOMEN: Soft. No organomegaly. No tenderness. No masses. Bowel sounds normal. EXTREMITIES: Reveal no edema. CENTRAL NERVOUS SYSTEM: Grossly within normal limits. CLINICAL IMPRESSION: 1. A 79-year-old female with a history of food impaction in the esophagus since last night. She is unable to swallow water freely and water kept coming up. However, now she says the water seems to be going down and she does not appear to be in distress. She has no prior history of dysphagia. 2. Hypertension. 3. Diabetes mellitus. 4. Degenerative joint disease of the spine with surgeries in March and June [address] Villagomez. PLAN: EGD and foreign body removed. I have met with the patient in the ER room and explained to her about the procedure. She was also seen by anesthesiologist at the same time. I have explained to her the risks like bleeding and aspiration. She is agreeable. I will plan for EGD today. The patient to go back home today. She will be kept overnight for observation and hopefully she can go home tomorrow after she has an MRI. Job ID: [id number]
--- NOTE | 2019-08-07 13:11 | RAD ---
EXAM: XR Lumbar Spine 2 Or 3 View PROVIDED CLINICAL HISTORY: Performed for correlation with MRI lumbar spine. Low back pain. COMPARISON: 03/29/2018 FINDINGS: There are 5 nonrib-bearing lumbar-type vertebral bodies. Multilevel osteophytes are present with prom inent anterior osteophytes at the T11-12 level. There are prominent endplate degenerative changes seen at the L3-4 level with mild vacuum phenomenon present. There is prominent loss of height involvi ng the L5-S1 intervertebral disc space. There is persistent grade 1 anterolisthesis of L4 on L5 which measures approximately 8 mm. Previously obtained measurement was 9 mm. There has been interval postsurgical changes related to laminectomy defects extending from the L2-3 level to the L5-S1 level. Vascular calcifications are seen in the abdominal aorta and involving the iliac arteries. IMPRESSION: 1. Degenerative and postoperative changes of the lumbar spine. 2. Stable grade 1 anterolisthesis of L4 on L5.
--- NOTE | 2019-08-07 14:32 | MRI ---
MRI CERVICAL SPINE WITHOUT CONTRAST: HISTORY: Cervical radiculopathy. COMPARISON: 03/29/2018. FINDINGS: The craniocervical junction is unremarkable. No significant cord signal abnormality. C1-2:No significant stenosis. C2-3:No significant stenosis. C3-4:Right asymmetric disc osteophyte complex is present. There is right asymmetric uncinate process hypertrophy. Mild central canal stenosis and mild ventral cord flattening is present. There is moderate bilateral neural foraminal stenosis. C4-5:Broad-based disc osteophyte complex, with superimposed central disc protrusion. Mild effacement of ventral thecal sac. There is left asymmetric uncinate process hypertrophy. Bilateral facet osteoarthritis is present. [id number] bilateral neural foraminal stenosis is present. C5-6:Broad-based postoperative osteophyte ridge, with anteriorly located susceptibility from ACDF inv olving C5-6 levels. Mild central canal stenosis is present and there is moderate left and mild/moderate right neural foraminal narrowing. Bilateral facet hypertrophy is present, mild in degre e. C6-7: Disc osteophyte formation results in mild effacement of ventral thecal sac. There is bilateral uncinate process and mild facet hypertrophy with mild to moderate bilateral neural foraminal narrowing. C7-T1:No significant stenosis. Incidental note of expansion of the left T2-3 neural foramen by T2 hyperintense signal. IMPRESSION: 1. Multilevel cervical spondylosis, as outlined above. 2. 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 As clinically necessary, this could be further assessed with follow-up postcontrast scan. Transcribed Date/Time: 08/07/2019 2:49 PM
--- NOTE | 2019-08-07 14:46 | MRI ---
EXAM: MRI Lumbar Spine WO Con PROVIDED CLINICAL HISTORY: Lumbar radiculopathy COMPARISON: 03/29/2018 FINDINGS: 5 lumbar vertebral bodies are again demonstrated. There is stable anterolisthesis of L4 on L5, grade 1. Lumbar alignment remains otherwise normal. Vertebral body heights appear preserved. No focal concerning regional marrow signal abnormality is evident. The conus medullaris is normal in signal an d terminates at an appropriate level. Interval laminectomy changes at L2, L3 and L4. There is a multiseptated extradural cystlike structure/fluid collection within the laminectomy defect extending from the L2-3 disc space to approximately the superior endplate of L5, measuring at least 6.9 cm in craniocaudal dimension and 2.3 x 1.8 cm in greatest transverse and AP dimensions respectively. At L1-2, there is bilateral facet arthritis without significant central canal or foraminal narrowing apparent. At L2-3, there is a broad-based disc bulge and bilateral facet arthritis. There is mild central canal stenosis. There is mild bilateral foraminal narrowing. At L3-4, there is disc space height loss and endplate degenerative change. There is a right paracentr al/subarticular disc herniation with potential for impingement on the traversing right L4 nerve root. There is bilateral facet arthritis with severe left and moderate-severe right foraminal narrowi ng. At L4-5, there is a broad-based disc bulge and bilateral facet arthritis. There is severe bilateral f oraminal narrowing. No significant central canal stenosis apparent. At L5-S1, there is bilateral facet arthritis. There is no significant central canal or foraminal narr owing apparent. IMPRESSION: 1. L3-4 recurrent disc herniation as described. 2. Interval postoperative changes. 3. Additional degenerative changes producing areas of foraminal narrowing up to severe in degree as a jose guadalupe, appearing similar to prior.
[2019-08-07] MEDS ORDERED: Insulin Glargine 20 UNITS in Pre-Filled Syringe 1 EACH SC SCH (14:57)
--- NOTE | 2019-08-07 15:00 | PDOC.HOSPP ---
- Subjective Encounter Date: 08/07/19 Encounter Time: 08:30 Subjective: no sob or trouble swallowing now says she has scheduled outpt MRI for cervical and lumbar spine from [facility] - Objective Vital Signs & Weight: Vital Signs (12 hours) Temp Pulse Resp BP Pulse Ox 08/07/19 12:10 98.3 F 72 18 118/66 95 08/07/19 11:34 98.3 F 72 18 118/66 95 08/07/19 09:42 81 08/07/19 07:40 98.5 F 81 18 126/64 96 08/07/19 03:46 98.4 F 93 18 152/63 H 95 Weight Weight 163 lb 8 oz I&O: 08/06/19 08/07/19 08/08/19 06:59 06:59 06:59 Intake Total 400 Balance 400 Result Diagrams: 08/07/19 04:52 08/07/19 04:52 Additional Labs: Accuchecks 08/07/19 08/07/19 08/06/19 11:34 04:57 22:53 POC Glucose 335 H 468 H 242 H Hospitalist ROS - Medication Medications: Active Medications Generic Name Dose Route Start Last Admin Trade Name Freq PRN Reason Stop Dose Admin Amlodipine Besylate 10 mg 08/07/19 09:00 08/07/19 09:42 Norvasc PO 10 mg QAM ALTHEA Administration Famotidine 20 mg 08/07/19 09:00 08/07/19 09:42 Pepcid PO 20 mg BID ALTHEA Administration Glimepiride 2 mg 08/07/19 08:00 08/07/19 09:42 Amaryl PO 2 mg BID-WM ALTHEA Administration Insulin Human Lispro 0 units 08/07/19 05:30 08/07/19 05:41 Humalog SC 10 unit .MODERATE SLIDING SC PRN Administration MODERATE SLIDING SCALE Protocol Losartan Potassium 100 mg 08/07/19 09:00 08/07/19 09:41 Cozaar PO 100 mg QAM ALTHEA Administration Nebivolol 10 mg 08/07/19 09:00 08/07/19 09:41 Bystolic PO 10 mg QAM ALTHEA Administration Oxycodone HCl 10 mg 08/06/19 23:15 08/07/19 07:28 Oxycodone Ir PO 10 mg Q8H ALTHEA Administration Pregabalin 100 mg 08/06/19 23:59 08/07/19 07:29 Lyrica PO 100 mg 0800,1600,2359 ALTHEA Administration Ropinirole HCl 1 mg 08/07/19 09:00 08/07/19 09:42 Requip PO 1 mg BID ALTHEA Administration Sodium Chloride 10 ml 08/06/19 23:44 08/07/19 09:38 Flush - Normal Saline IVF 10 ml PRN PRN Administration Saline Flush Thyroid 180 mg 08/07/19 09:00 08/07/19 09:41 [place] Thyroid PO 180 mg QAM ALTHEA Administration - Exam General Appearance: NAD, awake alert Eye: PERRL, anicteric sclera ENT: no oropharyngeal lesions, moist mucosa Neck: supple, no JVD Heart: RRR, no gallops Respiratory: no wheezes, no rales Gastrointestinal: soft, non-tender, non-distended, normal bowel sounds Extremities: no clubbing, no edema Neurological: cranial nerve grossly intact, no focal deficits Psychiatric: normal affect, A&O x 3 Hosp A/P (1) DM (diabetes mellitus), type 2, uncontrolled Code(s): E11.65 - TYPE 2 DIABETES MELLITUS WITH HYPERGLYCEMIA Status: Acute Qualifiers: Glycemic state: with hyperglycemia Qualified Code(s): E11.65 - Type 2 diabetes mellitus with hyperglycemia (2) Foreign body in esophagus Code(s): T18.108A - UNSP FOREIGN BODY IN ESOPHAGUS CAUSING OTH INJURY, INIT Status: Resolved Qualifiers: Encounter type: subsequent encounter Qualified Code(s): T18.108D - Unspecified foreign body in esophagus causing other injury, subsequent encounter (3) CAD (coronary artery disease) Code(s): I25.10 - ATHSCL HEART DISEASE OF [place] CORONARY ARTERY W/O ANG PCTRS Status: Chronic Qualifiers: Coronary Disease-Associated Artery/Lesion type: bypass graft [place] vs. transplanted heart: [place] heart Associated angina: without angina Qualified Code(s): I25.810 - Atherosclerosis of coronary artery bypass graft(s) without angina pectoris (4) HTN (hypertension) Code(s): I10 - ESSENTIAL (PRIMARY) HYPERTENSION Status: Chronic Qualifiers: Hypertension type: essential hypertension Qualified Code(s): I10 - Essential (primary) hypertension (5) Dyslipidemia Code(s): E78.5 - HYPERLIPIDEMIA, UNSPECIFIED Status: Chronic - Plan had removal of foreign body from esophagus finger glucose is 500+ one dose lantus 20u, continue home dm meds is npo for MRI with sedation (outpt schedule) dc plan in am start liq diet to see if she tolerates will have repeat egd as outpt?
[2019-08-07] MEDS ORDERED: PROPOFOL 200 MG/20 ML VIAL ONE (15:11)
[2019-08-07] MEDS ORDERED: ePHEDrine 50 MG/ML VIAL ONE (15:11)
[2019-08-07] MEDS: Sodium Chloride 0.9% 1,000 ML IV SCH (15:27)
[2019-08-07] MEDS ORDERED: metFORMIN 500 MG TAB PO SCH (18:00)
[2019-08-07] MEDS ORDERED: HumaLOG 300 UNITS/3 ML VIAL SC PRN (19:41)
[2019-08-07] MEDS ORDERED: Empagliflozin [Jardiance] 10 MG PO SCH (21:00)
[2019-08-08] MEDS: oxyCODONE 5 MG TAB PO SCH ×2 (01:54→10:56)
[2019-08-08] MEDS: Pregabalin 50 MG CAP PO SCH ×2 (01:54→11:04)
[2019-08-08] MEDS: Sodium Chloride 0.9% 1,000 ML IV SCH (04:16)
[2019-08-08] MEDS: HumaLOG 300 UNITS/3 ML VIAL SC PRN (05:04)
[2019-08-08] MEDS ORDERED: metFORMIN 500 MG TAB PO SCH (08:00)
[2019-08-08] MEDS: Glimepiride 2 MG TAB PO SCH (10:58)
[2019-08-08] MEDS: Nebivolol HCl 5 MG TAB PO SCH (10:59)
[2019-08-08] MEDS: Losartan 25 MG TAB PO SCH (11:02)
[2019-08-08] MEDS: rOPINIRole HCl 1 MG TAB PO SCH (11:03)
[2019-08-08] MEDS: Amlodipine 10 MG TAB PO SCH (11:03)
[2019-08-08] MEDS: Famotidine 20 MG TAB PO SCH (11:05)
[2019-08-08 11:18] VITALS: BP 134/66; TEMP 97.6
--- NOTE | 2019-08-08 18:37 | DIS ---
DATE OF ADMISSION: 08/06/2019 DATE OF DISCHARGE: 08/08/2019 DISCHARGE DISPOSITION: Home. PRIMARY DISCHARGE DIAGNOSES: Foreign body in the esophagus, which was removed; diabetes mellitus type 2, uncontrolled, resolving. SECONDARY DISCHARGE DIAGNOSES: Coronary artery disease, hypertension, dyslipidemia. PROCEDURES DONE DURING HOSPITALIZATION: The patient has had upper endoscopy done by Dr. Palm on 08/06/2019 with removal of large amount of milky white material in the esophagus. There was also large foreign body with what appeared to be a vegetable matter with multiple fragmentation, which looked like a vegetable ball in the esophageal lumen. The patient has had cervical spine and lumbar spine MRIs as part of outpatient protocol, which was scheduled under sedation on the . Her lumbar spine MRI revealed L3-4 recurrent disk herniation. There is severe bilateral foraminal narrowing at L4-5, [id number] right foraminal narrowing at L3- 4. Cervical spine MRI without contrast done showed multilevel cervical spondylosis. There is left T2-3 neuroforamen expansion favoring dilated nerve root sleeve/perineural cyst. Lumbar spine plain x-ray done showed degenerative and postoperative changes of the lumbar spine, stable grade 1 anterolisthesis of L4 and L5. H and H of 10 and 34, platelet count 236. BUN 20, creatinine 1.1. DISCHARGE MEDICATIONS: 1. Norvasc 10 mg p.o. q.a.m. 2. Vitamin B12 of 2500 mcg sublingual q.a.m. 3. Jardiance 10 mg p.o. q.p.m. 4. Glimepiride 2 mg twice daily. 5. Metformin 1000 mg twice daily. 6. Januvia 100 mg p.o. q.p.m. 7. Micardis 80 mg p.o. q.a.m. 8. [place] Thyroid 180 mg p.o. q.a.m. 9. Protonix 40 mg p.o. daily. 10. Ropinirole 1 mg p.o. twice daily. 11. Lyrica 100 mg p.o. q.8 hourly. 12. Oxycodone 10 mg p.o. q.8 hourly. 13. Bystolic 10 mg p.o. q.a.m. 14. Fentanyl 25 mcg transdermal patch q.72 hourly. 15. Vitamin D2 of 50,000 units once weekly. ALLERGIES: TO ASPIRIN, MORPHINE, AND PENICILLIN. INPATIENT CONSULT: Dr. Palm for Gastroenterology. BRIEF COURSE DURING HOSPITALIZATION: The patient initially came to ER with complaints of not being able to eat or drink after she ate some potato chips. The patient was initially transferred from [facility]. She has had upper endoscopy by Dr. Palm with removal of vegetable foreign body from lower esophagus. She was initially kept n.p.o. and was slowly weaned into clear liquids, full liquids, and solid food prior to discharge. She needs to have a relook endoscopy in a week and follow up with Dr. Palm. During the course of her stay, the patient was found to have had uncontrolled diabetes with serum sugars of 546 on arrival. She was placed on her home doses of medications and this was slowly stabilizing. She is advised to check fingerstick glucose twice daily and record for a period of 10 days to follow up with her primary care physician. Please note, I have seen and examined the patient on the day of discharge. DISCHARGE PLAN: The patient to follow up with Dr. Tam Rangel, her primary care physician in 1 week. She also needs to follow up with Dr. Palm in 1 week for a repeat upper endoscopy to see for any underlying lesion. Job ID: [id number] [facility]
== END 2019-08-08 13:38 | disposition home or self-care (01) ==
LOC: ERS 19:15 → T4-A 20:19 → SDC/OP 20:20 → T4-A 21:11
PROVIDERS: ADMIT Internal Medicine Gastroenterology; ATTEND Internal Medicine Gastroenterology
PROC: 0DC58ZZ Extirpation of Matter from Esophagus, Via Natural or Artificial Opening Endoscopic (ICD-10-PCS; principal; 2019-08-06)
DX: T18.128A Food in esophagus causing other injury, initial encounter (principal); E03.9 Hypothyroidism, unspecified; E11.9 Type 2 diabetes mellitus without complications; I10 Essential (primary) hypertension; I25.10 Atherosclerotic heart disease of native coronary artery without angina pectoris; G89.29 Other chronic pain; M54.9 Dorsalgia, unspecified; G25.81 Restless legs syndrome; Z79.84 Long term (current) use of oral hypoglycemic drugs; Z79.899 Other long term (current) drug therapy; Z88.0 Allergy status to penicillin; Z88.5 Allergy status to narcotic agent; Z88.8 Allergy status to other drugs, medicaments and biological substances
CPT/HCPCS: 43247; 72100; 72141; 72148; 80048; 82962 ×3; 85025; 96361 ×2; 96374; 99284; G0378 ×3; 36415; 36416; J1100; J1815; J2001; J2405; J2550; J2704; J3010; J3490; S0028